=== PATIENT | female | born 1995 | race Caucasian/White ===

== ENCOUNTER → 2018-10-20 08:05 | Outpatient (CLI) | payer BC, SELFPAY ==
[2018-10-20 10:46] LABS: Vitamin D,25 Hydroxy 24.8 ng/mL (29.95-100.01)
[2018-10-20 10:47] LABS: CRP < 2.90 mg/L (0.0-3.0)
[2018-10-23 12:28] LABS: Vitamin A, Retinol 44.1 ug/dL (18.9-57.3)
== END ==
PROVIDERS: Family Provider Nurse Practitioner Primary Care; PCP Nurse Practitioner Primary Care; Referring Provider Internal Medicine Gastroenterology; Visit Provider Internal Medicine Gastroenterology
DX: K90.0 Celiac disease (principal)
CPT/HCPCS: 36415; 82306; 84590; 86140

== ENCOUNTER → 2018-12-07 13:21 | Outpatient (CLI) | payer BC, SELFPAY ==
[2018-12-07 18:33] LABS: Chlamydia Trachomatis by PCR Negative (Negative); Neisserai gonorrhoeae by PCR Negative (Negative); Probe Check PASS; Sample Adequacy Control PASS; Specimen Processing Control PASS
[2018-12-23 10:36] LABS: HPV Reflexed? NOT INDICATED
== END ==
PROVIDERS: Visit Provider Obstetrics & Gynecology
DX: Z12.4 Encounter for screening for malignant neoplasm of cervix (principal); Z11.3 Encounter for screening for infections with a predominantly sexual mode of transmission; Z32.01 Encounter for pregnancy test, result positive
CPT/HCPCS: 87491; 87591; 88175; G0145

== ENCOUNTER → 2018-12-21 09:35 | Outpatient (CLI) | payer BC, SELFPAY ==
[2018-12-21 11:01] LABS: Absolute Lymphocyte Count 1.14 X10^3/ul (0.83-4.51); Absolute Neutrophil Count 5.5 X10^3/uL (2.0-7.7); Basophil# 0.01 X10^3/uL; Basophil% 0.1 % (0-1); Color, Urine Yellow (Yellow); Eosinophil# 0.04 X10^3/uL; Eosinophils% 0.6 % (0-5); Glucose, Dipstick Normal (Normal); Hematocrit 40.4 % (37-47); Hemoglobin 13.2 g/dl (12.0-15.0); Ketone-Dipstick Negative (Negative); Leukocyte Esterase-Dipstick 25 /ul (Negative); Lymphocyte # 1.14 X10^3/ul (4.0); Lymphocyte % 16.1 % (19-41); Mean Corp Hgb Conc 32.7 g/gl (32-36); Mean Corpuscular Hgb 28.1 pg (27.0-32.0); Mean Corpuscular Volume 86.1 fL (81-99); Mean Platelet Vol. 11.2 fl (6.2-12.0); Monocyte# 0.45 X10^3/uL; Monocyte% 6.3 % (0-10); Neutrophil # 5.45 X10^3/uL (2.7-7.7); Neutrophil % 76.8 % (47-70); Nitrite-Dipstick Negative (Negative); Occult Blood-Urine Negative /ul (Negative); Platelet Count 268 K/mm3 (150-450); Protein-Dipstick 15 mg/dl (Negative); RBC Distribution Width CV 14.7 % (11.6-14.6); RBC Distribution Width SD 45.4 fl (35.1-43.9); Red Blood Count 4.69 M/mm3 (4.2-5.4); Specific Gravity, Urine 1.015 (1.002-1.030); Urine Bilirubin Dipstick Negative (Negative); Urine Clarity Sl. Cloudy (Clear); Urine Urobilinogen Normal (Normal); White Blood Count 7.1 K/mm3 (4.4-11.0)
[2018-12-21 11:02] LABS: POSITIVE COUNT NO; POSITIVE DIFFERENTIAL NO; POSITIVE MORPHOLOGY NO
[2018-12-21 11:05] LABS: COTININE Drug Screen Negative (<200 ng/mL)
[2018-12-21 11:12] LABS: Thyroid Stim Hormone (TSH) 1.26 uIU/mL (0.358-3.74)
[2018-12-21 11:13] LABS: Amphetamine Urine VISTA NEGATIVE (<1000 ng/mL); Barbiturate Urine VISTA NEGATIVE (< 200 ng/mL); Benzodiazepine Urine VISTA NEGATIVE (< 200 ng/mL); Cocaine Urine VISTA NEGATIVE (< 300 ng/mL); Ecstacy Urine VISTA NEGATIVE (< 500 ng/mL); Methadone Urine VISTA NEGATIVE (< 300 ng/mL); PCP Urine VISTA NEGATIVE (< 25 ng/mL); THC Urine VISTA NEGATIVE (< 50 ng/mL); Vista UDS pH Range 6
[2018-12-21 11:52] LABS: HIV - WCH Non-Reactive (Nonreactive); Rubella IgG 83.5 IU/mL
[2018-12-23 11:56] LABS: HEPATITIS B SURFACE AG Negative (Negative); Hep C Antibodies <0.1 s/co ratio (0.0-0.9); V-Zoster IgG (Immunity) 460 index (Immune >165)
[2018-12-24 20:18] LABS: Prenatal RPR NONREACTIVE (NONREACTIVE)
== END ==
PROVIDERS: Visit Provider Obstetrics & Gynecology
DX: Z34.81 Encounter for supervision of other normal pregnancy, first trimester (principal)
CPT/HCPCS: 36415; 80307; 81002; 84443; 85025; 86703; 86762; 86787; 86803; 87340

== ENCOUNTER → 2019-04-28 | Outpatient (CLI) | payer BC, SELFPAY ==
[2019-04-28 15:46] LABS: Hematocrit 32.7 % (37-47); Hemoglobin 10.7 g/dL (12.0-15.0); Mean Corp Hgb Conc 32.7 g/dL (32-36); Mean Corpuscular Hgb 28.5 pg (27.0-32.0); Mean Platelet Vol. 10.9 fl (6.2-12.0); Platelet Count 211 K/mm3 (150-450); RBC Distribution Width CV 13.4 % (11.6-14.6); RBC Distribution Width SD 42.2 fl (35.1-43.9); Red Blood Count 3.76 M/mm3 (4.2-5.4); White Blood Count 6.1 K/mm3 (4.4-11.0)
[2019-04-28 15:49] LABS: Glucose Challenge Gest 1H 50g 77 mg/dL (70-140)
== END | disposition home or self-care (01) ==
LOC: LABSPEC 13:40 → WOBLAB 13:42
PROVIDERS: Visit Provider Obstetrics & Gynecology
DX: Z34.83 Encounter for supervision of other normal pregnancy, third trimester (principal)
CPT/HCPCS: 36415; 82950; 85027

== ENCOUNTER → 2019-06-23 13:22 | Outpatient (CLI) | payer BC, SELFPAY | PROVIDERS: Visit Provider Obstetrics & Gynecology | DX: Z36.85 Encounter for antenatal screening for Streptococcus B (principal) | CPT/HCPCS: 87081 ==

== ENCOUNTER 2019-07-13 04:05 | Inpatient (IN) | payer BC, SELFPAY ==
[2019-07-13] MEDS: Lactated Ringers 500 ML 999 ML IV ×3 (04:35→07:09)
[2019-07-13 04:49] VITALS: BMI 20.8
[2019-07-13] MEDS: Lactated Ringers 1,000 ML 200 ML IV (05:09)
[2019-07-13 05:15] LABS: Absolute Lymphocyte Count 1.91 X10^3/uL (0.83-4.51); Basophil# 0.02 X10^3/uL; Basophil% 0.3 % (0-1); Eosinophil# 0.03 X10^3/uL; Eosinophils% 0.5 % (0-5); Hematocrit 36.2 % (37-47); Hemoglobin 11.3 g/dL (12.0-15.0); Lymphocyte # 1.91 X10^3/ul (4.0); Lymphocyte % 28.8 % (19-41); Mean Corp Hgb Conc 31.2 g/dL (32-36); Mean Corpuscular Volume 80.1 fL (81-99); Mean Platelet Vol. 11.5 fl (6.2-12.0); Monocyte# 0.61 X10^3/uL; Monocyte% 9.2 % (0-10); NRBC Flagged by Analyzer 0 % (0-5); Neutrophil # 4.03 X10^3/uL (2.7-7.7); Neutrophil % 60.7 % (47-70); Platelet Count 181 K/mm3 (150-450); RBC Distribution Width CV 14.2 % (11.6-14.6); RBC Distribution Width SD 41.1 fl (35.1-43.9); Red Blood Count 4.52 M/mm3 (4.2-5.4); White Blood Count 6.6 K/mm3 (4.4-11.0)
[2019-07-13] MEDS: fentaNYL-bupivacaine (epidural) 100 ML BAG EPIDURAL (05:41)
[2019-07-13] MEDS: Oxytocin 30 units/NS 500 ml 30 UNITS/500 ML IV.SOLN 334 UNITS IV (07:43)
--- NOTE | 2019-07-13 07:52 | PCM.HP.BLA ---
History and Physical Date of Admission: 07/13/19 [facility] ANTEPARTUM RECORD - HISTORY AND PHYSICAL (07/13/2019) Name: SUMEET MOONEY History of This : This is a 24-year-old patient 2 para 1 who presents in active labor. care has been uneventful. OB Physician: ONEIDA [place]'s Physician: GIOVANNA AVIONICS INSTALLER ...................................................................... : 1995 Age: 24 Address: [address] [place] [address] Phone: (h) [phone] Insurance Carrier: [employer] [facility] [id number] Emergency Contact: GINGER MOONEY [phone] ...................................................................... Final JUNIOR: 07/18/19 By Ultrasound: 10 weeks 1 day PARITY: (G-Total Pregnancies P-Fullterm,Premature,Induced AB,Spont AB, Ectopics, Multiple,Living) JUNIOR CONFIRMATION: By LMP: 09/30/19 Initial Exam: 07/18/19 By First Ultrasound Exam: 07/18/19 Final JUNIOR: 07/18/19 BLOOD TYPE: AFP: 1 HR PG: GBS: Original Ordering Provider: Ava Duke Comments: VAGINAL/RECTAL NANO Culture Group B Beta Streptococcus is not isolated. Rublla titer (>10 immune)-- Hepatatis B den AG-- CULTURES:-- OB PROBLEM LIST: ALLERGIC to PCN's! MSAFP and CF testing declined Recent Celiac Disease diagnosis Short interval between pregnancies ALLERGIES: Penicillins Intolerance-unknown MEDICATIONS: + DHA 28 mg iron- 975 mcg-200 mg combo pack One tablet by mouth daily SOCIAL HISTORY: Smoking - Never Alcohol Use - denies drinking Diet - Gluten-free Lifestyle - low stress lifestyle and Exercise - regular Employer - Home Job Description - Illicit Drug Use - denies use of street drugs Sexual Activity - Residence - Lives w/ and their son Place of - [place], [place] Spouse-Sig Other Name - Massimokeyona Kosta Spouse-Sig Other Occupation - Chair Mechanic @ [employer] in [place] Spouse-Sig Other Phone No - [phone] Children Name(s) - Edgar (09/2018 Lea King) PRIOR DELIVERY HISTORY DEL DATE GEST LAB WT LB WT OZ TYPE ANES LABOR TX 17 Jun 30 38 8 6 10 Vag Epidural No ANTEPARTUM FLOW CHART VISIT GE RTC FU F F HI U U DATE WK MD WKS HT PN HR M SS BP ED WT HI GL D EF ST __ ____ ___ __ __ ___ __ __ __ ___ __ __ __ ___ __ 25 Jun 38 JMW 1 37 + + 112/72 sl 136 tr - 18 Jun 37 JMW 1 35 + + 110/68 0 134 tr - Jun 36 JMW 1 34 V + + 118/74 sl 134 tr - 1 50 -2 May JMW 2 34 + 100/58 0 133 - - 07 Jun 12 JMW 3 31 + + 102/62 0 130 tr - 17 May 09 JMW 3 28 + + 90/74 0 129 - - Apr 05 DS 4 23 ? + + 90/60 0 125 - - March 01 DS 4 20 ? + + 108/60 0 124 - - February 27 DS 2 18 ? + ? 124/62 0 120 - - 08 Jan 24 DS 4 U+ US 118/66 0 116 - - Dec 20 DS 4 U+ O 108/60 0 116 - - ANTEPARTUM NOTE(S): Jul 07 2019: Good FM,Sore Throat Jun 30 2019: Vi Varma periodically,Good FM Jun 23 2019: GBS Today,LARC Form signed,Good FM Jun 09 2019: feeling well. May 19 2019: Feeling Well,Good FM Apr 28 2019: feeling well. Glucola drawn today. Mar 29 2019: feeling well. Glucola given. Mar 02 2019: see note February 15 2019: see note Jan 18 2019: see note Dec 21 2018: see note COMPREHENSIVE ANTEPARTUM NOTE(S): Jun 30 2019: Feeling well; reports active FM; denies UCs, VB, LOF; planning epidural for labor pain management; discussed warning signs, s/s Labor, when to call/come in; RTO 1 week(s) for PNV - KVW Jun 28 2019: GBS negative. EB Jun 25 2019: H taken to OB. tkg Jun 23 2019: F eeling well; reports active FM; denies UCs, VB, LOF; discussed warning signs, s/s Labor, when to call/come in; GBS done today; VE /-2; US done to confirm adequate growth; RTO 1 week(s) for PNV - KVW Jun 09 2019: Feeling well; reports active FM; denies UCs, VB, LO; discussed recommendation for TD[facility], [facility]; discussed warning signs, s/s PTL; RTO 2 week(s)for PNV Mar 29 2019: No complaints. Good movement. GCT and CBC next visit. Mar 02 2019: Anatomical US performed today with no anomalies noted. There is normal growth, placentation, and umbilical cord. Feeling movement. Mar 02 2019: Sumeet is feeling FM. Doing well. Comprehensive US done today. kbm Feb 15 2019: Sumeet reports no concerns today. Thinks she felt FM last night. Feb 15 2019: Doing well. Perhaps felt some movement yesterday. Anatomical US next visit. Jan 18 2019: Sumeet is doing well. Voicing no concerns. Declines genetics testing. kbm Jan 18 2019: Having some digestive issues. labs reviewed and are normal. She is immune to varicella. B+ blood type. Dec 21 2018: US today confirms EDC of 07/18/19. Normal heart beat noted. NOB nurse intake and labs done today. Dec 21 2018: Sumeet is here for her NOB visit at 10 w 1 d, she is a with an JUNIOR of 07/18/2019. US and PNV with Dr. Carver completed prior to NOB visit. Sumeet is accompanied today by her , Ginger, and their 6 month old son, Edgar. Ginger is helpful with Edgar and appears supportive. Edgar was born by at [facility], Sumeet states that she had SROM at 38 weeks and then had Pitocin. Past history updated. Delivery at [facility] is planned, possibly with an epidural, and she will breastfeed. Sumeet is a life long non-smoker, and she denies use of drugs or ETOH. She has been taking a OTC vitamin containing DHA, and finds that most days she tolerates this well. She will occasionally take a gummy vitamin. States daily nausea, that is beginning to improve, and she denies emesis. She states that as long as she eats often, she does well. Encouraged to continue small frequent meals with protein included throughout the day, as well as make sure she has adequate water hydration of at least one gallon every 24 hours. Genetic Screening form completed. MSAFP and CF testing declined, consent signed as such. Office practice patterns reviewed, including labs that will be collected today. Emergencies/danger signs to report, round ligament pain, reporting s/s of a UTI, and common OTC medications approved/not approved for use during reviewed. Sumeet was recently diagnosed with Celiac Disease, and she eats a gluten free diet. Dietary and water needs reinforced, including recommended weight gain, caloric needs, limiting empty calories. She does not consume caffeine. Printed guide for food safety provided with review. Discussed and encouarged recommended physical activity during . Kegel exercises reviewed. Discussed lifting restrictions during . Sumeet states that she understands all information provided during NOB visit, and has no questions following same. To [facility] draw station. AW Dec 07 2018: Sumeet is a 23 yr old new pt to the practice, here w/, Ginger and their 5 mo son, Edgar for Missed Menses. LMP 09/30/18 would make her 9 wks 5 days, JUNIOR 07/10/19. Hx [facility] 06/29/18 post SROM @ 38 wks. Reports only problem in her of 15 # wt gain. Edgar weighed 6# 10 oz at and doing well. She was just Dx'd w/Celiac Disease. Recent Endoscopy 10/20/18, reports preg test then was negative. UPT positive in the office this morning. No nausea. Hx loose stools with 1st . She was breast feeding and had several periods prior to becoming . Stopped nursing 3 wks ago w/knowledge of , still pumping once q other day, planning to stop. Taking a daily PNV. Non-smoker. No suergeries. No Hx abn paps or STD's. Had Varicella Vaccine. informational materials given and reviewed otc meds ok to take. NO NSAIDS. kbm REVIEW OF SYSTEMS: GENERAL - Denies fever, or chills SKIN - Denies rash, new skin lesions, or change in moles EYES - Denies blurred vision, or change in visual acuity EARS - Denies ear pain, or difficulty hearing NOSE - Denies nasal congestion, discharge, or bleeding MOUTH - Denies sore throat, or difficulty swallowing NECK - Denies pain or swelling RESPIRATORY - Denies shortness of breath, cough, wheezing CARDIOVASCULAR - Denies palpitations, chest pain, orthopnea, PND, peripheral edema, syncope or claudication GASTROINTESTINAL - Denies nausea, vomiting, diarrhea, constipation, Denies abdominal pain, melena and or bright red blood GENITOURINARY - Denies dysuria, frequency of urination, urgency, or hesitancy MUSCULOSKELETAL - Denies joint or muscle pain, or back pain NEUROLOGICAL - Denies localized numbness, weakness, or tingling PSYCHIATRIC - Denies depression, anxiety, substance abuse or suicide attempts ENDOCRINE - Denies heat or cold intolerance, weight loss or gain, increasing thirst HEMATO-IMMUNOLOGIC - Denies easy bruising, bleeding, oral ulcerations or recurrent infections GENETICS SCREENING: Age 35+ years: No Thalassemia: No Neural Tube Defect: No Down Syndrome: No VICENTA-SACHS: No Sickle Cell Disease: No Hemophilia: No Musc. Dystrophy: No Cystic Fibrosis: No-declines screening Loop Chorea: No Mental Retardation: No Fragile X: No Other genetic: No Other defects: No SABs/still births: No Drugs since LMP: No INFECTION HISTORY: High risk AIDS: No High risk Hepatitis: No Exposed to TB: No Exposed to Herpes: No Rash/viral illness since LMP: No History of STD: No MENSTRUAL HISTORY: *Menses Regularity: RegularMenarche (Age Onset): 16* PAST SUMMARY: PARITY: 1. Total Pregnancies............ 2 2. Full Term Pregnancies........ 1 3. Premature.................... 0 4. Abortions - Induced.......... 0 5. Abortions - Spontaneous...... 0 6. Ectopics..................... 0 7. Multiple Births.............. 0 8. Living Children.............. 1 PAST #1: Date of :.................. 06/29/18 Gestation Weeks:................ 38 Length of labor(hours):......... 8 Sex:............................ M Weight-lbs:............... 6 Weight-oz:................ 10 Type of Delivery:............... Vag Type of Anesthesia:............. Epidural Place of Delivery:.............. [facility] Treatment of Labor?:.... No Comment: SROM, PIT PHYSICAL EXAMINATION General Appearence: 24 yo female in no acute distress Vital Signs: AF, VSS Heart: RRR without rubs or gallops Lungs: CTA x 2 Breasts: deferred Abdomen: gravid Pelvis: Cervix: 7 8 cm 95% effaced bag of water intact Presentation: cephalic Station: 0 Fetus: Size: AGA Movement: present Heart: present Labs for : SUMEET MOONEY since 10/21/2018 ORDER DATEIN DESCRIPTION VALUE UNITS RANGE A+ COMMENT TYPE AND SCREEN 07/13/19 Reason for Type AND Screen/Red Cells: Labor [facility]~[address] [place], [address]~ BLOOD TYPE GEL B POSITIVE N ANTIBODY SCREEN NEGATIVE N CBC W/DIFF, AUTOMATED 07/13/19 NOTE Original Ordering Provider: Ava Duke WBC 6.6 K/mm3 4.4-11.0 RBC 4.52 M/mm3 4.2-5.4 HGB 11.3 g/dL 12.0-15.0 L HCT 36.2 % 37-47 L MCV 80.1 fL 81-99 L MCH 25.0 pg 27.0-32.0 L MCHC 31.2 g/dL 32-36 L RDW CV 14.2 % 11.6-14.6 RDW SD 41.1 fl 35.1-43.9 PLT 181 K/mm3 150-450 MPV 11.5 fl 6.2-12.0 NEUT% 60.7 % 47-70 LY% 28.8 % 19-41 MONO% 9.2 % 0-10 EO% 0.5 % 0-5 BASO% 0.3 % 0-1 IM GRAN % 0.500 % 0.0-0.9 IG% - Immature Granulocytes (promyelocytes, myelocytes and metamyelocytes) > 1% indicates that a LEFT SHIFT is Present. ABSOLUTE NEUT 4.0 X10 3/uL 2.0-7.7 ABSOLUTE LYMPH 1.91 X10 3/uL 0.83-4.51 NRBC, FLAGGED 0 % 0-5 CULTURE, GROUP B STREPTOCOCCUS 06/23/19 NOTE Original Ordering Provider: Ava Duke Comments: VAGINAL/RECTAL NANO Culture Group B Beta Streptococcus is not isolated. Reviewed by LEENA GLUCOSE CHALLENGE GEST 1H 50G 04/28/19 NOTE Original Ordering Provider: Ava Dkue GLU GEST 50G 1H 77 mg/dL 70-140 Reviewed by AVA CBC-COMPLETE BLOOD CNT NO DIFF 04/28/19 NOTE Original Ordering Provider: Ava Duke WBC 6.1 K/mm3 4.4-11.0 RBC 3.76 M/mm3 4.2-5.4 L HGB 10.7 g/dL 12.0-15.0 L HCT 32.7 % 37-47 L MCV 87.0 fL 81-99 MCH 28.5 pg 27.0-32.0 MCHC 32.7 g/dL 32-36 RDW CV 13.4 % 11.6-14.6 RDW SD 42.2 fl 35.1-43.9 PLT 211 K/mm3 150-450 MPV 10.9 fl 6.2-12.0 Reviewed by AVA RPR 12/21/18 NOTE Original Ordering Provider: Ronnie Carver RPR NONREACTIVE NONREACTIVE Reviewed by RONNIE V-ZOSTER IGG (IMMUNITY) 12/21/18 NOTE Original Ordering Provider: Ronnie Carver VZOST IGG [id number] index Immune >165 Negative <135 Equivocal 135 - 165 Positive >165 A positive result generally indicates exposure to the pathogen or administration of specific immunoglobulins, but it is not indication of active infection or stage of disease. Reviewed by RONNIE HEPATITIS C ANTIBODIES 12/21/18 NOTE Original Ordering Provider: Ronnie Carver HEP C AB <0.1 s/co ratio 0.0-0.9 Negative: < 0.8 Indeterminate: 0.8 - 0.9 Positive: > 0.9 The CDC recommends that a positive HCV antibody result be followed up with a HCV Nucleic Acid Amplification test (983955). Reviewed by RONNIE HEPATITIS B SURFACE AG 12/21/18 NOTE Original Ordering Provider: Ronnie Carver HB SURF AG Negative Negative Performed at: [address] [id number] Relief Salesperson: Armaan Link PhD, Phone: [phone] Reviewed by RONNIE T AND S-NO CHARGE W/PNP 12/21/18 Reason for Type AND Screen/Red Cells: Surgery? N [facility]~[address] [place], [address]~ BLOOD TYPE GEL B POSITIVE N AB SCREEN GEL NEGATIVE N Reviewed by RONNIE HIV - [facility] 12/21/18 NOTE Original Ordering Provider: Ronnie Carver HIV - [facility] Non-Reactive Nonreactive Reviewed by RONNIE RUBELLA IGG 12/21/18 NOTE Original Ordering Provider: Ronnie Carver RUBELLA IGG 83.5 IU/mL Antibody results Interpretation of Immune Status < 5 IU/ml Presumed Non-immune 5 - < 10 IU/ml Equivocal > or = 10 IU/ml Presumed Immune Reviewed by RONNIE NICOTINE URINE DRUG SCREEN 12/21/18 NOTE Original Ordering Provider: Ronnie Carver TO BE CONFIRMED CONFIRMATORY TESTING FOR ALL POSITIVE URINE DRUG SCREEN RESULTS WILL ONLY BE SENT OUT UPON PHYSICIAN ORDER. The results of Urine Drug Screen methods provide only preliminary analytical test results. A more specific alternate chemical method must be used in order to obtain a confirmed analytical result. Gas chromatography/mass spectrometery (GC/MS) is the preferred confirmatory method. Clinical consideration and professional judgement should be applied to any drug of abuse test result, particularly when preliminary positive results are used. COT DRG SCREEN Negative <200 ng/mL Cotinine is the first-stage metabolite of Nicotine. Reviewed by RONNIE URINE DRUG SCREEN (VISTA) 12/21/18 NOTE Original Ordering Provider: Ronnie Carver TO BE CONFIRMED CONFIRMATORY TESTING FOR ALL POSITIVE URINE DRUG SCREEN RESULTS WILL ONLY BE SENT OUT UPON PHYSICIAN ORDER. VISTA Urine Drug Screen methods provide only preliminary analytical test results. A more specific alternate chemical method must be used in order to obtain a confirmed analytical result. Gas chromatography/mass spectrometery (GC/MS) is the preferred confirmatory method. Clinical consideration and professional judgement should be applied to any drug of abuse test result, particularly when preliminary positive results are used. URINE TCA TESTING MUST BE ORDERED SEPARATELY. USE TEST MNEMONIC: [facility] VISTA UDS PH 6 AMPHETAMINES NEGATIVE <1000 ng/mL BARBITIURATES NEGATIVE < 200 ng/mL BENZODIAZIPINE NEGATIVE < 200 ng/mL COCAINE NEGATIVE < 300 ng/mL ECSTACY NEGATIVE < 500 ng/mL METHADONE NEGATIVE < 300 ng/mL OPIATES NEGATIVE < 300 ng/mL PCP NEGATIVE < 25 ng/mL THC NEGATIVE < 50 ng/mL Reviewed by RONNIE THYROID STIM HORMONE (TSH) 12/21/18 NOTE Original Ordering Provider: Ronnie Carver TSH 1.26 uIU/mL 0.358-3.74 Reviewed by RONNIE URINALYSIS, ROUTINE (DIPSTICK) 12/21/18 NOTE Original Ordering Provider: Ronnie Carver COLOR Yellow Yellow CLARITY Sl. Cloudy Clear GLUCOSE, UR Normal mg/dl Normal BILIRUBIN URINE Negative mg/dL Negative KETONE UR Negative mg/dl Negative SP.GR. DIPSTX 1.015 1.002-1.030 PH UR 7.0 5.0 - 8.0 PROT DIPSTX 15 mg/dl Negative H UROBILI Normal mg/dl Normal NITRITE UR Negative Negative OCCULT BLOOD-UR Negative /ul Negative LEUK ESTERASE 25 /ul Negative H Reviewed by RONNIE CBC W/DIFF, AUTOMATED 12/21/18 NOTE Original Ordering Provider: Ronnie Carver WBC 7.1 K/mm3 4.4-11.0 RBC 4.69 M/mm3 4.2-5.4 HGB 13.2 g/dl 12.0-15.0 HCT 40.4 % 37-47 MCV 86.1 fL 81-99 MCH 28.1 pg 27.0-32.0 MCHC 32.7 g/gl 32-36 RDW CV 14.7 % 11.6-14.6 H RDW SD 45.4 fl 35.1-43.9 H PLT 268 K/mm3 150-450 MPV 11.2 fl 6.2-12.0 NEUT% 76.8 % 47-70 H LY% 16.1 % 19-41 L MONO% 6.3 % 0-10 EO% 0.6 % 0-5 BASO% 0.1 % 0-1 IM GRAN % 0.100 % 0.0-0.9 IG% - Immature Granulocytes (promyelocytes, myelocytes and metamyelocytes) > 1% indicates that a LEFT SHIFT is Present. ABSOLUTE NEUT 5.5 X10 3/uL 2.0-7.7 ABSOLUTE LYMPH 1.14 X10 3/ul 0.83-4.51 Reviewed by RONNIE Reviewed by RONNIE Reviewed by RONNIE PAP I-G W/RFX HRHPV 12/07/18 NOTE Original Ordering Provider: Ronnie Carver DIAGN . NEGATIVE FOR INTRAEPITHELIAL LESION OR MALIGNANCY. ADEQ . Satisfactory for evaluation. Endocervical and/or squamous metaplastic cells (endocervical component) are present. PERFORM . Ariadna Bragg Circular Knitter (ASCP) TEST METHOD . This liquid based ThinPrep(R) pap test was screened with the use of an image guided system. COMM . . PAPSMR . The Pap smear is a screening test designed to aid in the detection of premalignant and malignant conditions of the uterine cervix. It is not a diagnostic procedure and should not be used as the sole means of detecting cervical cancer. Both false-positive and false-negative reports do occur. HPV RFLX . The HPV DNA reflex criteria were not met with this specimen result therefore, no HPV testing was performed. Performed at: [address] [id number] Relief Salesperson: Tere Cochran MD, Phone: [phone] Reviewed by RONNIE Reviewed by RONNIE CT/NG [facility] BY PCR 12/07/18 NOTE Original Ordering Provider: Ronnie Carver CHLAM TRA PCR Negative Negative NG BY PCR Negative Negative Reviewed by RONNIE Impression /Plan: Term intrauterine in labor. Preparations in progress for delivery.
--- NOTE | 2019-07-13 07:56 | PCM.OPRPT ---
Vaginal Delivery Maternal Presentation: Active Labor Amniotic Membrane Rupture Type: Artificial Amniotic Fluid Description: Clear Final JUNIOR: 07/18/19 Gestational age: 39 Weeks and 2 Days Date of Procedure: 07/13/19 Pre-Operative Diagnosis: IUP Post-Operative Diagnosis: IUP Surgery/ Procedure Performed: Spontaneous Vaginal Delivery Type of Anesthesia: Epidural Description of Procedure: Spontaneous vaginal delivery of a viable male infant with Apgars of 9/9 from an occiput anterior presentation with clear amniotic fluid and normal three-vessel placenta. Cord wrapped around feet loose. No episiotomy. First-degree midline laceration repaired with 3-0 repeat suture under epidural. Sponges okay. Delivery physician: Thien Duke MD. Presentation: Vertex Placental Delivery Description: Spontaneous Placenta Disposition: [facility] Cord Vessel Description: 3 Vessels Cord Entanglement: - - Around feet loose Estimated Blood Loss: 250 cc A gender: Male (1 minute): 9 (5 minute): 9 Episiotomy Description: None Laceration: Midline, 1st degree Medications given after delivery: IV Pitocin
--- NOTE | 2019-07-13 08:00 | DCINST_ITS ---
Discharge Diet: No Restrictions Discharge Activity: May Shower, May Take a Tub Bath May resume sexual activity in: 4-6 weeks Additional Activity Instructions:: Nothing in the vagina for 4-6 weeks. You may return to work/school in 6 weeks. Call your doctor if you observe: Fever of 101 or Higher, Inability to urinate, Inability to have a bowel movement, Using more than one pad per hour Additional Instructions: If you experience any of the following, contact your healthcare provider. * Bleeding that soaks a pad every hour for 2 hours * Unrelieved incision or abdominal pain * Swelling, redness, discharge or bleeding from your incision or episiotomy site * Your incision begins to separate * Problems urinating (including inability to urinate or burning while urinating). * Visual changes * Severe headache * Flu-like symptoms * Pain or redness in one of both of your breasts * Pain, warmth, tenderness or swelling in your legs, especially the calf area * Frequent nausea and vomiting * Symptoms of depression or anxiety If you experience any of the following, call 911 or go to the nearest Emergency Room. * Chest pain * Problems breathing * Seizure activity * Partial or complete paralysis of a body part, slurred speech, weakness or drooping of the face, or a sudden inability to walk or hold your balance Allergies/Adverse Reactions: Allergies Penicillins [PCN] Allergy (Verified 07/13/19 04:51) Unknown pt states she had a reaction in childhood, doesnt remember reaction Medications to take at Discharge Vits [Prenatabs FA] 1 tab PO DAILY 07/13/19 Please Follow Up With: Thien Duke MD - [phone] When: Call to make an appointment with your doctor in 6 weeks. Primary Care Physician: Kathy Lund NP-C [Primary Care Provider] - Test Results: Test results from this visit will be discussed in further detail at your follow- up appointment, if applicable.
[2019-07-13] MEDS: Ibuprofen 600 MG Tablet PO ×2 (11:18→17:45)
[2019-07-13 11:40] VITALS: BP 106/52; PULSE 71; RESP 16; TEMP 37.5; O2SAT 98
[2019-07-13 17:20] VITALS: BP 118/68; PULSE 76; RESP 18; TEMP 37.3
[2019-07-13 19:44] VITALS: BP 107/69; PULSE 88; RESP 18; TEMP 36.7
[2019-07-14 00:45] VITALS: BP 107/68; PULSE 76; RESP 16; TEMP 36.6
[2019-07-14] MEDS: Ibuprofen 600 MG Tablet PO ×2 (00:55→08:10)
[2019-07-14 04:50] VITALS: BP 114/67; PULSE 74; RESP 18; TEMP 36.6
[2019-07-14 08:00] VITALS: BP 108/68; PULSE 80; RESP 15; TEMP 36.9
--- NOTE | 2019-07-14 08:05 | PCM.PN.OB ---
Subjective: Resting comfortably, tolerating diet, passing flatus, denies pain; infant well Objective: AVSS Breasts soft, nipples reddened, irritated Fundus firm, midline, u/2, lochia scant Perineum with mild edema, repair well approximated, without erythema, or drainage - Physical Exam General: Alert, Oriented x3, Cooperative, No apparent distress HEENT: PERRLA, EOMI Oral: Moist Mucosa Neck: Supple Lungs: Clear to auscultation, Normal air movement Cardiovascular: Regular rate, Regular Rhythm Abdomen: Bowel Sounds Present, Soft, Non Tender, Non-Distended, Passing Flatus Extremities: No edema, No Calf Tenderness Musculoskeletal: No Tenderness to Palpation of Joints or Extremities Neurological: Cranial nerves II-XII grossly intact, Deep Tendon Reflexes 2+/4 and Symmetrical Psych/Mental Status: Normal Affect, Appropriate, Alert and oriented to time, place, person, mood and affect Vital Signs Temp Pulse Resp BP Pulse Ox 97.8 F 74 18 114/67 98 07/14/19 04:50 07/14/19 04:50 07/14/19 04:50 07/14/19 04:50 07/13/19 11:40 Oxygen Delivery Method Room Air Weight: 136 lb 14.513 oz Body Mass Index (BMI) 20.8 Intake and Output for Last 24 Hours 07/12/19 07/13/19 07/14/19 23:59 23:59 23:59 Intake Total 2282.85 / 2282.85 Output Total 1700 / 1700 Balance 582.85 / 582.85 Medical Necessity - Tobacco Use Smoking Status: Never smoker Assessment/Plan Assessment: PP Day #1, normal involution, normal course Nipple irritation r/t Plan: Lansinoh, colostrum to nipples Discharge teaching completed Discharge home at 24 hours if patient and infant stable RTO 6 weeks for PP exam
[2019-07-14 09:36] VITALS: BP 108/74; PULSE 72; RESP 14; TEMP 36.5
[2019-07-14] MEDS: Acetaminophen 500 MG Tablet 1000 MG PO (13:38)
== END 2019-07-14 13:45 | disposition home or self-care (01) | DRG 807 ==
PROVIDERS: Admitting Provider Obstetrics & Gynecology; Family Provider Nurse Practitioner Primary Care; PCP Nurse Practitioner Primary Care; Referring Provider Obstetrics & Gynecology; Visit Provider Obstetrics & Gynecology
DX: O69.82X0 Labor and delivery complicated by other cord entanglement, without compression, not applicable or unspecified (principal); Z37.0 Single live birth; O26.893 Other specified pregnancy related conditions, third trimester; O99.62 Diseases of the digestive system complicating childbirth; K90.0 Celiac disease; O70.0 First degree perineal laceration during delivery; Z3A.39 39 weeks gestation of pregnancy
CPT/HCPCS: 59025; 59050; 85025; 86850; 86900; 86901; 99218; J7120; G0378

== ENCOUNTER → 2020-06-07 12:05 | Outpatient (CLI) | payer OTHER, SELFPAY ==
[2020-06-07 15:52] LABS: Absolute Lymphocyte Count 1.66 X10^3/uL (0.83-4.51); Absolute Neutrophil Count 2.3 X10^3/uL (2.0-7.7); Basophil# 0.04 X10^3/uL; Basophil% 0.9 % (0-1); Eosinophil# 0.08 X10^3/uL; Eosinophils% 1.8 % (0-5); Hemoglobin 13.7 g/dL (12.0-15.0); Lymphocyte # 1.66 X10^3/ul (4.0); Lymphocyte % 38.3 % (19-41); Mean Corp Hgb Conc 32.6 g/dL (32-36); Mean Corpuscular Hgb 29.5 pg (27.0-32.0); Mean Corpuscular Volume 90.3 fL (81-99); Mean Platelet Vol. 11.4 fl (6.2-12.0); Monocyte# 0.25 X10^3/uL; Monocyte% 5.8 % (0-10); NRBC Flagged by Analyzer 0 % (0-5); Neutrophil % 53.2 % (47-70); Platelet Count 231 K/mm3 (150-450); RBC Distribution Width CV 13.1 % (11.6-14.6); RBC Distribution Width SD 42.6 fl (35.1-43.9); Red Blood Count 4.65 M/mm3 (4.2-5.4); White Blood Count 4.3 K/mm3 (4.4-11.0)
[2020-06-07 16:03] LABS: ALB/GLOB Ratio 1.1 RATIO (0.9-2.4); AST(SGOT) 13 U/L (15-37); Alanine Aminotransfer ALT/SGPT 23 U/L (13-56); Albumin, Serum 4.1 g/dL (3.2-5.0); Alkaline Phosphatase 62 U/L (45-117); Anion Gap 4 (5-15); BUN 12 mg/dL (7-18); BUN/Creat Ratio 16.4 RATIO (10-20); Calcium,Total 9.1 mg/dL (8.5-10.1); Chloride 108 mmol/L (98-107); Creatinine, Serum 0.73 mg/dL (0.55-1.02); EST Glomerular Filtration Rate 103 mL/min (>60); Est Glom Filt Rate - Afr Amer 125 mL/min (>60); Globulin 3.8 g/dL (2.2-4.2); Glucose 77 mg/dL (74-106); Potassium 3.8 mmol/L (3.5-5.1); Protein, Total 7.9 g/dL (6.4-8.2); Sodium Level 140 mmol/L (136-145)
[2020-06-09 16:08] LABS: Endomysial Antibody IgA Negative (Negative)
[2020-06-10 13:18] LABS: Immunoglobulin A 117 mg/dL (87-352); t-Transglutaminase IgA 3 U/mL (0-3)
== END ==
PROVIDERS: PCP Nurse Practitioner Primary Care; Referring Provider Internal Medicine Gastroenterology; Visit Provider Internal Medicine Gastroenterology
DX: R10.84 Generalized abdominal pain (principal)
CPT/HCPCS: 36415; 80053; 82306; 82784; 83516; 85025; 86255

== ENCOUNTER 2021-03-29 07:30 | Inpatient (IN) | payer OTHER, SELFPAY ==
[2021-03-29] VITALS (35 sets, daily range): BP systolic 94–120; BP diastolic 50–76; PULSE 55–92; RESP 16–18; TEMP 36.4–37.2; O2SAT 99–100; BMI 21.4
[2021-03-29] MEDS: Lactated Ringers 1,000 ML 200 ML IV (07:53)
--- NOTE | 2021-03-29 07:57 | PCM.HP.BLA ---
History and Physical Date of Admission: 03/29/21 [facility] [place] - H[place]ORY AND PHYSICAL (03/29/2021) Name: SU MOONEY History of this : This is a 25 year old [id number] presents at 39 wks + 3 days gestation who presents in active labor. OB Physician: DEREK CARABALLO MD 's Physician: Kevon ...................................................................... : 1995 Age: 25 Address: [address] [place] [address] Phone: H) [phone] Insurance Carrier: [employer] [id number] Emergency Contact: OSMIN MOONEY [phone] ...................................................................... Final JUNIOR: 04/02/21 By Ultrasound: 8 weeks 3 days PARITY: (G-Total Pregnancies P-Fullterm,Premature,Induced AB,Spont AB, Ectopics, Multiple,Living) JUNIOR CONFIRMATION: By LMP: 06/26/20 Initial Exam: 04/02/21 By First Ultrasound Exam: 04/03/21 Final JUNIOR: 04/02/21 OB PROBLEM LIST: AFP and carrier screening declined ALLERGIC to PCN's! Celiac Disease EPDS on 08/24/2020 = 2. Epidural and breast feeding planned ALLERGIES: Penicillins Intolerance-unknown SOCIAL HISTORY: Smoking - Never Alcohol Use - denies drinking Diet - Gluten-free Lifestyle - low stress lifestyle and Exercise - regular Employer - Home Job Description - Illicit Drug Use - denies use of street drugs Sexual Activity - Residence - Lives with Place of - [place], [place] Spouse-Sig Other Name - Osmin Mooney Spouse-Sig Other Occupation - [employer] Spouse-Sig Other Phone No - [phone] Children Name(s) - Edgar (09/2018 Cornish Gen), Kojo(19) PRIOR DELIVERY HISTORY DEL DATE GEST LAB WT LB WT OZ TYPE ANES LABOR TX Jul 31 39 5 6 14 Vag Epidural No 17 Jun 30 38 8 6 10 Vag Epidural No ANTEPARTUM FLOW CHART VISIT GE RTC FU F F LA U U DATE WK MD WKS HT PN HR M SS BP ED WT LA GL D EF ST __ ____ ___ __ __ ___ __ __ __ ___ __ __ __ ___ __ 14 Saurav 39 JMW 1 36 V + + 114/72 0 140 tr - 4+ 80 -1 07 Saurav 38 JM 1 38 V + + 100/78 0 138 tr ne 01 Saurav 37 JM 1 37 V + + 114/70 0 13 tr ne 05 March 36 JM 1 36 V + + 110/62 0 134 tr - 19 February 34 JM 2 34 V + + 110/58 0 134 tr ne Jan 32 JM 2 2 V + + 100/64 0 128 tr - 12 Feb 09 JM 2 30 - + + 116/70 0 132 tr ne 29 Jan 07 JM 2 28 - + + 94/80 0 128 tr - 15 Jan 05 JM 2 26 - + + 100/58 0 127 tr - 16 Nov 22 CM 4 22 U+ + 122/60 0 123 - - 05 Oct 28 JM 4 16 - + O 99/70 0 117 tr - 10 Sep 23 JM 4 12 - + O 100/66 0 116 tr - ANTEPARTUM NOTE(S): Mar 26 2021: pelvic pressure, back pain Mar 19 2021: Mar 13 2021: Mar 05 2021: see note Feb 19 2021: Feb 05 2021: see note Jan 22 2021: Jan 08 2021: see note Dec 25 2020: doing well, glucola today Nov 28 2020: Oct 17 2020: see note Sep 21 2020: fatigue, sl nausea COMPREHENSIVE ANTEPARTUM NOTE(S): Mar 26 2021: Su is here for a PNV at 39 weeks. Good FM. No edema present at this time. No ctx's recently. Reports mild pelvic pressure and back pain. Would like a cervix check today. Mar 19 2021: Su is here for PNV. Voices no concerns today. Having no ctx. No LOF or vaginal discharge States she is ready at home for delivery. Having good FM. Declines cervix check. Urine tr/neg. LSS Mar 19 2021: 38wk, no complaints. Mar 13 2021: Su is here for PNV. Bugs bites are resolving. Trying to stay inside to avoid further issue. Does not feel that she is having any ctx. Having good FM. No edema noted. Declines cervix check. Urine tr/neg. LSS Mar 13 2021: 37wk, GBS neg. Bug bites resolving, cleared by PCP. Mar 13 2021: H taken to OB. tkg Mar 05 2021: Su is here for visit. She is doing well overall but does have a bug bite she is concerned about. She has a line to area of redness on L calf approx 3 cm by 4 cm. She has not tried anything. Discussed topical steriod/antihistamine, PCP? Appears like a possible spider bite? Reviewed FM, SROM, labor. GBS today. LARC declined but may be intereted in Nexplanon later. LMT Mar 05 2021: 36wk, GBS collected today. Declined cervical check. Pt with bug bites on b/l lower legs, all apear to be normal bug bites that she goes from [place] at home. But left calf with bite and ring like structure possibly worm. To follow up with PCP and can I discuss tx plan with PCP. Feb 19 2021: Su is here for PNV. Feeling much better since having the flu. Weight back up and eating/taking fluids well. No edema present today. Has not noticed any BH ctx. Urine tr/neg. LSS Feb 19 2021: 34wk, interested in control. Considering LARC, says OCP she would not remember to take. Needs GBS next visit. Feb 05 2021: Reviewed FM, PTL. Encouraged Tdap and will do that today. LMT Feb 05 2021: 32wk, had stomach flu. PO hydrating and eating small meals now. Discussed immodium. Jan 22 2021: Su is here for PNV. States she feels well over all. Tires some. Taking care of 2 toddlers at home. Having good FM. No edema noted today. No compliants. Urine neg/neg. LSS Jan 22 2021: 30wk, 1hr GTT wnl. Jan 08 2021: Su is being seen for PNV. Pt is 28 weeks today. She complains of cramping randomly at waist line. Long dips shows trs leuks, trs protein, 7.0 pH, specific gravity 1005 and all others are negative. AM Jan 08 2021: 28wk, 1hr GTT wnl. Pt with some cramping on one side that comes and goes. Pt working outside, likely physiologic. Dec 25 2020: Su is here for visit. Glucola drawn today. She is feeling really well and enjoying feeling less tired and no nausea. LMT Dec 25 2020: 26wk, 1hr GTT today. Nov 28 2020: Su reports feeling well. Good FM. Comprehensive US today no anomalies, AGA. Voicing no concerns. Glucola bottle and instructions given to be done next visit. kb Nov 28 2020: 22/1w visit. anatomy US wnl. Glucola bottle given. F/u 4w. CM Oct 17 2020: Su is here for visit. She relates that overall she is feeling well overall. Nausea improved and rare at this point. She does report increased frequency in headaches. She feels Tylenol helps. Advised may add caffeine and antihistamine if needed. Call if worsening. Declines Influenza, carrier screening, and NIPT. LMT Oct 17 2020: 16wk, Headaches. Discussed tylenol. Going to chiropractor, discussed safety of chiropractors. Anatomy u/s at next visit. Sep 21 2020: Su reports that she is doing well. Feeling pretty fatigued and slight nausea persists. Feels all pretty normal as she has 2 boys at home to take care of. T Sep 21 2020: 12wk, u/s at last visit with final JUNIOR. PNP wnl. For anatomy u/s around 20 weeks. Sep 06 2020: TELEHEALTH NOB VISIT, 20 MINUTE DURATION. Su is a 25 year old with an JUNIOR of 04/02/2021, current GA is 10 w 2 d. She resides with her Osmin, and their two young sons. Past history updated. Delivery at [facility] is planned with a likely epidural, and she will breast feed. Su is an established patient with this practice, and she states that she is very familiar wit Aug 24 2020: Su is here for missed menses appt. She relates LMP of 914 with +UPT today in office, EDC 04/02/21. This would make her 8 weeks 3 days. She does report menses has been irregular but she was . She has mild nausea and fatigue. She is not taking her very often as she feels this makes her feel worse. She could try 2 Chewable [place] complete. She reports her brother wa REVIEW OF SYSTEMS: GENERAL - Denies fever, or chills SKIN - Denies rash, new skin lesions, or change in moles EYES - Denies blurred vision, or change in visual acuity EARS - Denies ear pain, or difficulty hearing NOSE - Denies nasal congestion, discharge, or bleeding MOUTH - Denies sore throat, or difficulty swallowing NECK - Denies pain or swelling RESPIRATORY - Denies shortness of breath, cough, wheezing CARDIOVASCULAR - Denies palpitations, chest pain, orthopnea, PND, peripheral edema, syncope or claudication GASTROINTESTINAL - Denies nausea, vomiting, diarrhea, constipation, Denies abdominal pain, melena and or bright red blood GENITOURINARY - Denies dysuria, frequency of urination, urgency, or hesitancy MUSCULOSKELETAL - Denies joint or muscle pain, or back pain NEUROLOGICAL - Denies localized numbness, weakness, or tingling PSYCHIATRIC - Denies depression, anxiety, substance abuse or suicide attempts ENDOCRINE - Denies heat or cold intolerance, weight loss or gain, increasing thirst HEMATO-IMMUNOLOGIC - Denies easy bruising, bleeding, oral ulcerations or recurrent infections GENETICS SCREENING: Age 35+ years: No Thalassemia: No Neural Tube Defect: No Down Syndrome: No VICENTA-SACHS: No Sickle Cell Disease: No Hemophilia: No Musc. Dystrophy: No Cystic Fibrosis: No-declines screening [place] Chorea: No Mental Retardation: No Fragile X: No Other genetic: No Other defects: No SABs/still births: No Drugs since LMP: No INFECTION HISTORY: High risk AIDS: No High risk Hepatitis: No Exposed to TB: No Exposed to Herpes: No Rash/viral illness since LMP: No History of STD: No MENSTRUAL HISTORY: *Menses Amount/Duration: 5 daysMenses Regularity: IrregularMenarche (Age Onset): 16* PAST SUMMARY: PARITY: 1. Total Pregnancies............ 3 2. Full Term Pregnancies........ 2 3. Premature.................... 0 4. Abortions - Induced.......... 0 5. Abortions - Spontaneous...... 0 6. Ectopics..................... 0 7. Multiple Births.............. 0 8. Living Children.............. 2 PAST #1: Date of :.................. 06/29/18 Gestation Weeks:................ 38 Length of labor(hours):......... 8 Sex:............................ M Weight-lbs:............... 6 Weight-oz:................ 10 Type of Delivery:............... Vag Type of Anesthesia:............. Epidural Place of Delivery:.............. [facility] Treatment of Labor?:.... No Comment: AILYN, PIT PAST #2: Date of :.................. 07/13/19 Gestation Weeks:................ 39 Length of labor(hours):......... 5 Sex:............................ M Weight-lbs:............... 6 Weight-oz:................ 14 Type of Delivery:............... Vag Type of Anesthesia:............. Epidural Place of Delivery:.............. [place] Treatment of Labor?:.... No Comment: PHYSICAL EXAMINATION General Appearence: 25 yo female in no acute distress Vital Signs: AF, VSS Heart: RRR without rubs or gallops Lungs: CTA x 2 Breasts: deferred Abdomen: gravid Pelvis: Cervix: 6/80 intact Presentation: cephalic Station: -2 Fetus: Size: AGA Movement: present Heart: present LAB TEST(S) ORDERED SINCE:07/06/20 08/29/2020 URINE CULTURE, ROUTINE 08/29/2020 CHLAMYDIA/GC AMPLIFICATION 08/29/2020 CBC/D/PLT+RPR+UA+RH+ABO+RUB... 03/09/2021 STREP GP B CULTURE 12/26/2020 24-35 Week Labs == ==== Order Observation Description Value Ref_Range A* Site == ==== STREP GP B CULT STREP GP B CULTURE Negative Negative LC_CB Centers for Disease Control and Prevention (CDC) and [place] [employer] of Obstetricians and Gynecologists (ACOG) guidelines for prevention of group B streptococcal (GBS) disease specify co-collection of a vaginal and rectal swab specimen to maximize sensitivity of GBS detection. Per the CDC and ACOG, swabbing both the lower vagina and rectum substantially increases the yield of detection compared with sampling the vagina alone. . Penicillin G, ampicillin, or cefazolin are indicated for intrapartum prophylaxis of GBS colonization. Reflex susceptibility testing should be performed prior to use of clindamycin only on GBS isolates from penicillin-allergic women who are considered a high risk for anaphylaxis. Treatment with vancomycin without additional testing is warranted if resistance to clindamycin is noted. 24-35 Week Labs HCT/HGB scanned PHELPS CBC/D/PLT+RPR+U TSH 2.790 uIU/mL 0.450-4.500 LC_CB CBC/D/PLT+RPR+U HBSAG SCREEN Negative Negative LC_CB CBC/D/PLT+RPR+U RPR Non Reactive Non Reactive LC_CB CBC/D/PLT+RPR+U RUBELLA ANTIBODIES, IGG 3.79 index Immune >0.99 LC_CB Non-immune <0.90 Equivocal 0.90 - 0.99 Immune >0.99 CBC/D/PLT+RPR+U ABO GROUPING B LC_CB CBC/D/PLT+RPR+U RH FACTOR Positive LC_CB Please note: Prior records for this patient's ABO / Rh type are not available for additional verification. CBC/D/PLT+RPR+U ANTIBODY SCREEN Negative Negative LC_CB CBC/D/PLT+RPR+U HIV SCREEN 4TH GENERATIO Non Reactive Non Reactive LC_CB CBC/D/PLT+RPR+U WBC 4.0 x10E3/uL 3.4-10.8 LC_CB CBC/D/PLT+RPR+U RBC 4.51 x10E6/uL 3.77-5.28 LC_CB CBC/D/PLT+RPR+U HEMOGLOBIN 13.6 g/dL 11.1-15.9 LC_CB CBC/D/PLT+RPR+U HEMATOCRIT 39.5 % 34.0-46.6 LC_CB CBC/D/PLT+RPR+U MCV 88 fL 79-97 LC_CB CBC/D/PLT+RPR+U MCH 30.2 pg 26.6-33.0 LC_CB CBC/D/PLT+RPR+U MCHC 34.4 g/dL 31.5-35.7 LC_CB CBC/D/PLT+RPR+U RDW 13.7 % 11.7-15.4 LC_CB CBC/D/PLT+RPR+U PLATELETS 203 x10E3/uL 150-450 LC_CB CBC/D/PLT+RPR+U NEUTROPHILS 54 % Not Estab. LC_CB CBC/D/PLT+RPR+U LYMPHS 38 % Not Estab. LC_CB CBC/D/PLT+RPR+U MONOCYTES 6 % Not Estab. LC_CB CBC/D/PLT+RPR+U EOS 1 % Not Estab. LC_CB CBC/D/PLT+RPR+U BASOS 0 % Not Estab. LC_CB CBC/D/PLT+RPR+U IMMATURE CELLS LC_CB CBC/D/PLT+RPR+U NEUTROPHILS (ABSOLUTE) 2.1 x10E3/uL 1.4-7.0 LC_CB CBC/D/PLT+RPR+U LYMPHS (ABSOLUTE) 1.5 x10E3/uL 0.7-3.1 LC_CB CBC/D/PLT+RPR+U MONOCYTES(ABSOLUTE) 0.2 x10E3/uL 0.1-0.9 LC_CB CBC/D/PLT+RPR+U EOS (ABSOLUTE) 0.0 x10E3/uL 0.0-0.4 LC_CB CBC/D/PLT+RPR+U BASO (ABSOLUTE) 0.0 x10E3/uL 0.0-0.2 LC_CB CBC/D/PLT+RPR+U IMMATURE GRANULOCYTES 1 % Not Estab. LC_CB CBC/D/PLT+RPR+U IMMATURE GRANS (ABS) 0.1 x10E3/uL 0.0-0.1 LC_CB CBC/D/PLT+RPR+U NRBC LC_CB CBC/D/PLT+RPR+U HEMATOLOGY COMMENTS: LC_CB CBC/D/PLT+RPR+U SPECIFIC GRAVITY 1.010 1.005-1.030 LC_CB CBC/D/PLT+RPR+U PH 7.5 5.0-7.5 LC_CB CBC/D/PLT+RPR+U URINE-COLOR Yellow Yellow LC_CB CBC/D/PLT+RPR+U APPEARANCE Clear Clear LC_CB CBC/D/PLT+RPR+U WBC ESTERASE Negative Negative LC_CB CBC/D/PLT+RPR+U PROTEIN Negative Negative/Trace LC_CB CBC/D/PLT+RPR+U GLUCOSE Negative Negative LC_CB CBC/D/PLT+RPR+U KETONES Negative Negative LC_CB CBC/D/PLT+RPR+U OCCULT BLOOD Negative Negative LC_CB CBC/D/PLT+RPR+U BILIRUBIN Negative Negative LC_CB CBC/D/PLT+RPR+U UROBILINOGEN,SEMI-QN 0.2 mg/dL 0.2-1.0 LC_CB CBC/D/PLT+RPR+U NITRITE, URINE Negative Negative LC_CB CBC/D/PLT+RPR+U MICROSCOPIC EXAMINATION LC_CB Microscopic not indicated and not performed. CHLAMYDIA/GC AM CHLAMYDIA TRACHOMATIS, N Negative Negative LC_=G CHLAMYDIA/GC AM NEISSERIA GONORRHOEAE, N Negative Negative LC_=G URINE CULTURE, URINE CULTURE, ROUTINE Final report LC_=G URINE CULTURE, RESULT 1 LC_=G Mixed urogenital eugenio 10,000-25,000 colony forming units per mL == ==== Impression /Plan: 39 wks + 3 days intrauterine in active labor. Preparations in progress for delivery.
[2021-03-29 08:12] LABS: Absolute Lymphocyte Count 1.16 X10^3/uL (0.83-4.51); Absolute Neutrophil Count 4.2 X10^3/uL (2.0-7.7); Basophil# 0.02 X10^3/uL; Basophil% 0.3 % (0-1); Eosinophil# 0.05 X10^3/uL; Eosinophils% 0.9 % (0-5); Hematocrit 34.9 % (37-47); Hemoglobin 11.2 g/dL (12.0-15.0); Lymphocyte # 1.16 X10^3/ul (0.83-4.51); Lymphocyte % 19.9 % (19-41); Mean Corp Hgb Conc 32.1 g/dL (32-36); Mean Corpuscular Hgb 27.3 pg (27.0-32.0); Mean Corpuscular Volume 84.9 fL (81-99); Mean Platelet Vol. 12.4 fl (6.2-12.0); Monocyte# 0.39 X10^3/uL; Monocyte% 6.7 % (0-10); NRBC Flagged by Analyzer 0 % (0-5); Neutrophil # 4.21 X10^3/uL (2.7-7.7); POSITIVE COUNT YES; Platelet Count 129 K/mm3 (150-450); RBC Distribution Width CV 13.2 % (11.6-14.6); RBC Distribution Width SD 40.6 fl (35.1-43.9); Red Blood Count 4.11 M/mm3 (4.2-5.4); White Blood Count 5.8 K/mm3 (4.4-11.0)
[2021-03-29 08:13] LABS: Differential Indicated SCAN CRITERIA MET
[2021-03-29] MEDS: Lactated Ringers 500 ML 999 ML IV ×2 (08:42→10:15)
[2021-03-29 08:49] LABS: Platelet Estimate SLT DEC (ADEQ); Platelet Morphology LARGE
[2021-03-29] MEDS: fentaNYL-bupivacaine (epidural) 100 ML BAG EPIDURAL (10:17)
[2021-03-29] MEDS: Oxytocin 30 units/NS 500 ml 30 UNITS/500 ML IV.SOLN 334 UNITS IV (13:49)
--- NOTE | 2021-03-29 18:38 | EX.PCM.OBRPT ---
Maternal Data Information Final JUNIOR: 04/02/21 Final JUNIOR Source: US <20 weeks Gestational age: 39w3d Vaginal Delivery Operative Information Date of Procedure: 03/29/21 Pre-Operative Diagnosis: IUP Post-Operative Diagnosis: IUP Type of Anesthesia: Epidural Estimated Blood Loss: 250 cc Findings Description of Procedure: Spontaneous vaginal delivery of a viable female infant with Apgars of 8/9 from an occiput anterior presentation with clear amniotic fluid and normal three-vessel placenta. Cord around the neck x1 loose. No episiotomy or lacerations. Sponges okay. Delivery physician: Thien Duke MD. Presentation: Vertex Amniotic Membrane Rupture Type: Artificial Amniotic Fluid Description: Clear Placental Delivery Description: Spontaneous Placenta Disposition: [facility] Gender: Female (1 minute): 8 (5 minute): 9 Post Vaginal Delivery Medications Given After Delivery: IV Pitocin Episiotomy Description: None Laceration: None Complication Complications: None
--- NOTE | 2021-03-29 18:48 | PCM.DC ---
Documented by User: Dr. Thien Duke MD 03/29/21 18:51 Discharge Instructions Diet Discharge Diet: No restrictions Activity Discharge Activity: May Drive (In 1 to 2 days if not taking narcotic pain medication), May Shower and May Take a Tub Bath May resume sexual activity in: 4-6 weeks Additional Activity Instructions:: Nothing in the vagina for 4-6 weeks. You may return to work/school in 6 weeks. Dressing / Incision Call your doctor if you observe: Fever of 101 or Higher, Inability to urinate, Inability to have a bowel movement and Using more than 1 pad per hour Follow Up Care Please Follow Up With: Carlos Enrique Horvath MD When: Call [phone] to make an appointment with your doctor in 6 weeks. Test Results: Test results from this visit will be discussed in further detail at your follow-up appointment, if applicable. Discharge Plan Admission Admit Date/Time: 03/29/21 07:30 Primary Reason for Your Visit: Vaginal Delivery Attending Provider: Thien Duke Primary Care Provider: Kathy Lund NP Consulting Providers: Fanny Salomon Instructions Patient Instructions: After a Vaginal Additional Instructions / Restrictions: You make take Tylenol Extra Strength or NSAIDs over the counter for cramping or pain. Discharge Orders/Prescriptions Prescriptions: Continued vit,[id number] 1 TABLET tablet 1 tab PO DAILY RF: 0 Referrals / Follow Up: Kathy Lund NP, DIRECTOR OF CAPITAL GIVING-C [Primary Care Provider] - Disposition Disposition (needs filled in before D/C Order can be placed): Home, self care Documented by User: Dr. Fanny Apodaca MD 03/30/21 09:07 Discharge Instructions Dressing / Incision Call your doctor if you observe: Shortness of breath, Chest pain, Calf discomfort and Uncontrolled pain Follow Up Care Please Follow Up With: Carlos Enrique Horvath MD When: 3 weeks for telephone visit 6 weeks for visit Discharge Plan Admission Admit Date/Time: 03/29/21 07:30 Primary Reason for Your Visit: Vaginal Delivery Attending Provider: Thien Duke Primary Care Provider: Kathy Lund NP Consulting Providers: Fanny Salomon Instructions Patient Instructions: After a Vaginal Additional Instructions / Restrictions: You make take Tylenol Extra Strength or NSAIDs over the counter for cramping or pain. Discharge Orders/Prescriptions Prescriptions: Continued vit,[id number] 1 TABLET tablet 1 tab PO DAILY RF: 0 Referrals / Follow Up: Kathy Lund NP, DIRECTOR OF CAPITAL GIVING-C [Primary Care Provider] - Disposition Disposition (needs filled in before D/C Order can be placed): Home, self care
[2021-03-29] MEDS: Acetaminophen 500 MG Tablet PO (21:55)
[2021-03-30] MEDS: Ibuprofen 600 MG Tablet PO ×2 (02:20→11:54)
[2021-03-30 03:48] VITALS: BP 102/61; PULSE 59; RESP 18; TEMP 36.8
[2021-03-30] MEDS: Acetaminophen 500 MG Tablet 1000 MG PO (07:27)
[2021-03-30 07:55] VITALS: BP 114/63; PULSE 63; RESP 16; TEMP 36.6
--- NOTE | 2021-03-30 08:59 | PCM.PN.OB ---
Subjective Subjective Reports her bottom is sore, but she has relief using ice pack. Has mild cramping intermittently alleviated with NSAIDs. Denies heavy lochia. She is breast-feeding and infant is nursing well. Tolerates p.o., voiding without difficulty. Objective Data Objective Data Vital Signs: Vital Signs Temp Pulse Resp BP Pulse Ox 97.8 F 63 16 114/63 100 03/30/21 07:55 03/30/21 07:55 03/30/21 07:55 03/30/21 07:55 03/29/21 15:37 Oxygen Delivery Method Room Air Weight: 63.866 kg Body Mass Index (BMI) 21.4 Intake & Output: Intake and Output for Last 24 Hours 03/28/21 03/29/21 03/30/21 23:59 23:59 23:59 Intake Total 2680.00 / 2680.00 Output Total 2200 / 2200 Balance 480.00 / 480.00 Lab / Micro Data Result Diagrams: 03/29/21 07:53 Labs: Laboratory Results - last 24 hr 03/29/21 07:53 Blood Type B POSITIVE Antibody Screen NEGATIVE Micro: Microbiology 03/29/21 08:04 Mucosa - Nose SARS-CoV-2 Antigen (Rapid) - Final Physical Exam Const alert, oriented x3 and no apparent distress Resp normal respiratory effort and normal air movement Cardio regular rate, regular rhythm, S1 normal heart sound and S2 normal heart sound Uterus Palpation: uterus fundus firm and other OB fundus nontender Extremity no calf tenderness Extremity Narrative: No lower extremity edema Neuro oriented x3 Assessment & Plan (1) (spontaneous vaginal delivery): COMMENT: 25-year-old 3 para 3-0-0-3 day #1 PLAN: B positive HIV nonreactive, hep B surface antigen negative, rubella immune, RPR nonreactive Breast-feeding DC home today
[2021-03-30 15:00] VITALS: BP 106/63; PULSE 90; RESP 16
== END 2021-03-30 16:07 | disposition home or self-care (01) | DRG 807 ==
LOC: WPOUT 07:42 → WP 07:43
PROVIDERS: Admitting Provider Obstetrics & Gynecology; PCP Nurse Practitioner Primary Care; Referring Provider Obstetrics & Gynecology; Visit Provider Obstetrics & Gynecology
DX: O69.81X0 Labor and delivery complicated by cord around neck, without compression, not applicable or unspecified (principal); Z37.0 Single live birth; Z3A.39 39 weeks gestation of pregnancy
CPT/HCPCS: 59025; 59050; 85025; 86850; 86900; 86901; 87426; 99218; J7120; G0378

== ENCOUNTER → 2021-09-19 14:29 | Outpatient (CLI) | payer OTHER, SELFPAY ==
[2021-09-19 17:57] LABS: Vitamin D,25 Hydroxy 27.1 ng/mL
[2021-09-19 18:22] LABS: AST(SGOT) 12 U/L (15-37); Alanine Aminotransfer ALT/SGPT 25 U/L (13-56); Albumin, Serum 3.8 g/dL (3.2-5.0); Alkaline Phosphatase 69 U/L (45-117); Anion Gap 8 (5-15); BUN 9 mg/dL (7-18); BUN/Creat Ratio 14.9 RATIO (10-20); CRP < 2.90 mg/L (0.0-3.0); Calcium,Total 9.2 mg/dL (8.5-10.1); Chloride 108 mmol/L (98-107); EST Glomerular Filtration Rate 127 mL/min (>60); Est Glom Filt Rate - Afr Amer 154 mL/min (>60); Globulin 3.8 g/dL (2.2-4.2); Glucose 84 mg/dL (74-106); Potassium 3.7 mmol/L (3.5-5.1); Protein, Total 7.6 g/dL (6.4-8.2); Sodium Level 141 mmol/L (136-145)
[2021-09-21 18:08] LABS: Endomysial Antibody IgA Negative (Negative)
[2021-09-22 12:48] LABS: Immunoglobulin A 123 mg/dL (87-352); t-Transglutaminase IgA 5 U/mL (0-3)
== END ==
PROVIDERS: PCP Nurse Practitioner Primary Care; Referring Provider Internal Medicine Gastroenterology; Visit Provider Internal Medicine Gastroenterology
DX: K90.0 Celiac disease (principal)
CPT/HCPCS: 36415; 80053; 82306; 82784; 83516; 86140; 86255

== ENCOUNTER → 2023-10-24 | Outpatient (CLI) | payer OTHER, SELFPAY ==
[2023-10-24 10:08] LABS: Absolute Lymphocyte Count 1.03 X10^3/uL (0.83-4.51); Absolute Neutrophil Count 4.8 X10^3/uL (2.0-7.7); Basophil# 0.03 X10^3/uL; Basophil% 0.5 % (0-1); Eosinophil# 0.04 X10^3/uL; Eosinophils% 0.6 % (0-5); Hemoglobin 12.5 g/dL (12.0-15.0); Lymphocyte # 1.03 X10^3/ul (0.83-4.51); Lymphocyte % 16.4 % (19-41); Mean Corp Hgb Conc 32.9 g/dL (32-36); Mean Corpuscular Hgb 29.7 pg (27.0-32.0); Mean Corpuscular Volume 90.3 fL (81-99); Mean Platelet Vol. 10.4 fl (6.2-12.0); Monocyte# 0.37 X10^3/uL; Monocyte% 5.9 % (0-10); NRBC Flagged by Analyzer 0 % (0-5); Neutrophil % 76.3 % (47-70); Platelet Count 231 K/mm3 (150-450); RBC Distribution Width CV 13.4 % (11.6-14.6); RBC Distribution Width SD 43.6 fl (35.1-43.9); Red Blood Count 4.21 M/mm3 (4.2-5.4); White Blood Count 6.3 K/mm3 (4.4-11.0)
--- OUTSIDE RECORDS SUMMARY | 2023-10-24 10:14 | XMS RPT_ITS | CCD ---
Author Name Unknown Address [address] [place] [address] Organization [facility] Care Team Providers Care Insurance Legal Assistant Name Role Phone LARIMORE, CHRISTIAN (SUPERVISOR CELL ROOM) Unavailable Unavailab le LARIMORE, CHRISTIAN (SUPERVISOR CELL ROOM) Unavailable Unavailab le LARIMORE, CHRISTIAN (SUPERVISOR CELL ROOM) Unavailable Unavailab le LARIMORE, CHRISTIAN (SUPERVISOR CELL ROOM) Unavailable Unavailab le LARIMORE, CHRISTIAN (SUPERVISOR CELL ROOM) Unavailable Unavailab le LARIMORE, CHRISTIAN (SUPERVISOR CELL ROOM) Unavailable Unavailab le LARIMORE, CHRISTIAN (SUPERVISOR CELL ROOM) Unavailable Unavailab le SWAPNIL, VANI ADAN Unavailable Unavailable LARIMORE, CHRISTIAN (SUPERVISOR CELL ROOM) Unavailable Unavailab le SWAPNIL, VANI ADAN Unavailable Unavailable SWAPNIL, VANI ADAN Unavailable Unavailable SWAPNIL, VANI ADAN Unavailable Unavailable SWAPNIL, VANI ADAN Unavailable Unavailable SWAPNIL, VANI ADAN Unavailable Unavailable SWAPNIL, VANI ADAN Unavailable Unavailable POLIFRONE, SHABNAM MAVIS Unavailable Unavail able SWAPNIL, VANI ADAN Unavailable Unavailable SWAPNIL, VANI ADAN Unavailable Unavailable POLIFRONE, SHABNAM MAVIS Unavailable Unavail able SWAPNIL, VANI ADAN Unavailable Unavailable CHAPARRITA, EDILBERTO Unavailable Unavailable SWAPNIL, VANI ADAN Unavailable Unavailable KIRSIVAN, GALI GOFF Unavailable Unavaila ble CHAPARRITA EDILBERTO Unavailable Unavailable KIRGALI FINNEGAN Unavailable Unavaila ble DAJA PILLAI Unavailable Unavailable KIRSIVAN, GALIDANIELA GOFF Unavailable Unavaila ble ZUPONCIC, DORIS (RES) Unavailable Unava ilable ZUPONCIC, DORIS (RES) Unavailable Unava ilable ZUPONCIC, DORIS (RES) Unavailable Unava ilable LARIMORE, CHRISTIAN Unavailable Unavailable IMCA Unavailable Unavailable IMCA Unavailable Unavailable IMCA Unavailable Unavailable IMCA Unavailable Unavailable LARIMORE, CHRISTIAN Unavailable Unavailable IMCA Unavailable Unavailable LARIMORE, CHRISTIAN Unavailable Unavailable LARIMORE, CHRISTIAN Unavailable Unavailable IMCA Unavailable Unavailable LARIMORE, CHRISTIAN Unavailable Unavailable LARIMORE, CHRISTIAN Unavailable Unavailable IMCA Unavailable Unavailable SWAPNIL, D. R Unavailable Unavailable LARIMORE, CHRISTIAN Unavailable Unavailable IMCA Unavailable Unavailable LARIMORE, CHRISTIAN Unavailable Unavailable IMCA Unavailable Unavailable SWAPNIL, D. R Unavailable Unavailable SWAPNIL, D. R Unavailable Unavailable IMCA Unavailable Unavailable SWAPNIL, D. R Unavailable Unavailable SWAPNIL, D. R Unavailable Unavailable IMCA Unavailable Unavailable SWAPNIL, D. R Unavailable Unavailable IMCA Unavailable Unavailable POLIFRONE, SHABNAM B Unavailable Unavailable SWAPNIL, D. R Unavailable Unavailable IMCA Unavailable Unavailable SWAPNIL, D. R Unavailable Unavailable IMCA Unavailable Unavailable SWAPNIL, D. R Unavailable Unavailable POLIFRONE, SHABNAM B Unavailable Unavailable IMCA Unavailable Unavailable SWAPNIL, D. R Unavailable Unavailable IMCA Unavailable Unavailable CHAPARRITA, EDILBERTO Unavailable Unavailable SWAPNIL, D. R Unavailable Unavailable IMCA Unavailable Unavailable ZUPONCIC, DORIS Unavailable Unavailable CHAPARRITA, EDILBERTO Unavailable Unavailable IMCA Unavailable Unavailable KIRVEN, GALI S Unavailable Unavailable CHAPARRITA, EDILBERTO Unavailable Unavailable FREYA, DAJA Unavailable Unavailable KIRVEN, GALI S Unavailable Unavailable KIRVEN, GALI S Unavailable Unavailable FREYA, DAJA Unavailable Unavailable FREYA, DAJA Unavailable Unavailable ZUPONCIC, DORIS Unavailable Unavailable ZUPONCIC, DORIS Unavailable Unavailable ZUPONCIC, DORIS Unavailable Unavailable IMCA Unavailable Unavailable ZUPONCIC, DORIS Unavailable Unavailable ZUPONCIC, DORIS Unavailable Unavailable ZUPONCIC, DORIS Unavailable Unavailable IMCA Unavailable Unavailable BRANDT CIGAR SORTER-COFFEE BLENDER, LUIS S Primary Care Physicia n Luis Carlton Primary Care Provider [phone] BRANDT [employer]IG[employer] S[employer]COFFEE BLENDER, LUIS S Attending Unava ilable BRANDT CIGAR SORTER-COFFEE BLENDER, LUIS S Primary Care Unava ilable BRANDT CIGAR SORTER-COFFEE BLENDER, LUIS S Attending Unava ilable BRANDT CIGAR SORTER-COFFEE BLENDER, LUIS S Primary Care Unava ilable BRANDT CIGAR SORTER-COFFEE BLENDER, LUIS S Attending Unava ilable BRANDT CIGAR SORTER[employer]COFFEE BLENDER, LUIS S Primary Care Unava ilable LUIS CARLTON S Primary Care Unavailable ELISE CROOK Attending Unavailable LUIS CARLTON Primary Care Unavailable ELISE CROOK Attending Unavailable LUIS CARLTON Primary Care Unavailable ELISE CROOK Referring Unavailable TEX BAL NIK Attending Unavaila LUIS Freitas Primary Care Unavailable LUIS CARLTON Primary Care Unavailable ELISE CROOK Referring Unavailable Allergies Allergy Classification Reported Allergen(s) Allergy Type Date of Onset Reaction(s) Facility (11 sources) Penicillins; Translations: [PENICILLINS] Propensity to adverse reactions to drug (disorder) 8 Other: See Comments [facility] Other [place] [facility] Medications Current Medications Medication Drug Class(es) Dates Sig (Normalized) Sig (Original) acetaminophen 500 mg oral tablet (5 sources) Start: 05-12-2019 acetaminophen 500 mg oral tablet Dose : 500 mg = 1 tab(s), Oral, q6hr, PRN for pain, 0 Refill(s) Start Date: 05/12/19 Status: Ordered azithromycin 250 mg oral tablet (1 source) Macrolide Antimicrobial Start: 01-19-2022 End: 01-24-2022 Zithromax 250 mg oral tablet Dose : 250 mg = 1 tab(s), Oral, qDay, follow directions on Z-Darrel, X 5 day(s), # 6 tab(s), 0 Refill(s), 01/24/22 9:30:00 EDT, Pharmacy: [facility]/pharmacy #[id number], 174, cm, 01/19/22 9:12:00 EDT, Height, 52.6 Start Date: 01/19/22 Stop Date: 01/24/22 Status: Ordered budesonide 3 mg delayed release oral capsule (2 sources) Corticosteroid Start: 02-18-2023 budesonide 3 mg oral delayed release capsule Dose : 9 mg = 3 cap(s), Oral, qAM, 0 Refill(s) Start Date: 02/18/23 Status: Ordered Completed/Discontinued Medications Medication Drug Class(es) Dates Sig (Normalized) Sig (Original) ALIGN PROBIOTIC RESISTANCE CAPSULE (2 sources) ALIGN PROBIOTIC RESISTANCE CAPSULE Take by mouth. 0 Active Problems Active Problems Problem Classification Problem Date Documented Da te Episodic/Chronic Fluid and electrolyte disorders (1 source) Dehydration; Translations: [Dehydration] Onset: 08-30-2021 Episodic Nausea and vomiting (1 source) Vomiting; Translations: [Vomiting, unspecified] Onset: 08-30-2021 Episodic Noninfectious gastroenteritis (1 source) Lymphocytic colitis; Translations: [Other and unspecified noninfectious gastroenteritis and colitis] Chronic Other complications of (1 source) Outcome of delivery, unspecified; Translations: [Outcome of delivery, unspecified] Onset: 06-29-2018 Episodic Other gastrointestinal disorders (4 sources) Celiac disease; Translations: [Celiac disease] 09-11-2021 Chronic Other gastrointestinal disorders (1 source) Celiac disease; Translations: [Celiac disease] Onset: 12-20-2022 Chronic Other gastrointestinal disorders (3 sources) Diarrhea; Translations: [Diarrhea, unspecified] Onset: 08-30-2021 Episodic Other liver diseases (3 sources) Elevated liver enzymes level 01-15-2022 Episodic Other and delivery including normal (4 sources) Encounter for supervision of normal first , third trimester; Translations: [Encounter for supervision of normal first , second trimester] Onset: 02-03-2018 Episodic Other screening for suspected conditions (not mental disorders or infectious disease) (2 sources) Encounter for screening for malformations; Translations: [Encounter for screening, unspecified] Onset: 12-09-2017 Ovarian cyst (1 source) Corpus luteum cyst of left ovary; Translations: [Corpus luteum cyst of left ovary] Onset: 12-09-2017 Residual codes; unclassified (1 source) 32 weeks gestation of ; Translations: [32 weeks gestation of ] Onset: 05-19-2018 Residual codes; unclassified (1 source) 17 weeks gestation of ; Translations: [17 weeks gestation of ] Onset: 02-03-2018 Residual codes; unclassified (1 source) 20 weeks gestation of ; Translations: [20 weeks gestation of ] Onset: 02-24-2018 Residual codes; unclassified (1 source) 13 weeks gestation of ; Translations: [13 weeks gestation of ] Onset: 01-06-2018 Residual codes; unclassified (1 source) 28 weeks gestation of ; Translations: [28 weeks gestation of ] Onset: 04-21-2018 Residual codes; unclassified (1 source) 33 weeks gestation of ; Translations: [33 weeks gestation of ] Onset: 05-28-2018 Residual codes; unclassified (1 source) 9 weeks gestation of ; Translations: [9 weeks gestation of ] Onset: 12-09-2017 Residual codes; unclassified (1 source) 30 weeks gestation of ; Translations: [30 weeks gestation of ] Onset: 05-04-2018 Residual codes; unclassified (1 source) 36 weeks gestation of ; Translations: [36 weeks gestation of ] Onset: 06-16-2018 Residual codes; unclassified (1 source) 37 weeks gestation of ; Translations: [37 weeks gestation of ] Onset: 06-22-2018 Residual codes; unclassified (1 source) 24 weeks gestation of ; Translations: [24 weeks gestation of ] Onset: 03-24-2018 Unclassified (1 source) Unknown / UNK(Unknown) Onset: 06-16-2018 Unclassified (1 source) Lymphocytic colitis 07-08-2023 Past or Other Problems Problem Classification Problem Date Documented Da te Episodic/Chronic Abdominal pain (4 sources) Left lower quadrant pain; Translations: [Left lower quadrant pain] Onset: 01-29-2023 Episodic Hemorrhage during ; abruptio placenta; placenta previa (2 sources) Other antepartum hemorrhage, first trimester; Translations: [Antepartum hemorrhage, unspecified, first trimester] Onset: 12-09-2017 Episodic Other complications of ; puerperium affecting management of mother (1 source) Maternal care for other (suspected) abnormality and damage, not applicable or unspecified; Translations: [Maternal care for other (suspected) abnormality and damage, not applicable or unspecified] Onset: 02-24-2018 Episodic Other complications of ; puerperium affecting management of mother (1 source) Maternal care for (suspected) abnormality and damage, unspecified, not applicable or unspecified; Translations: [Maternal care for (suspected) abnormality and damage, unspecified, not applicable or unspecified] Onset: 02-24-2018 Episodic Other complications of (1 source) Maternal care for other known or suspected poor growth, third trimester, not applicable or unspecified; Translations: [Maternal care for other known or suspected poor growth, third trimester, not applicable or unspecified] Onset: 05-28-2018 Episodic Other complications of (1 source) Uterine size-date discrepancy, third trimester; Translations: [Uterine size-date discrepancy, third trimester] Onset: 05-19-2018 Episodic Other complications of (1 source) Low weight gain in , third trimester; Translations: [Low weight gain in , third trimester] Onset: 06-16-2018 Episodic Other complications of (1 source) Maternal care for other abnormalities of gravid uterus, first trimester; Translations: [Maternal care for other abnormalities of gravid uterus, first trimester] Onset: 12-09-2017 Episodic Other gastrointestinal disorders (1 source) Diarrhea, unspecified; Translations: [Diarrhea, unspecified type] Onset: 01-29-2023 Episodic Polyhydramnios and other problems of amniotic cavity (1 source) Other specified disorders of amniotic fluid and membranes, first trimester, not applicable or unspecified; Translations: [Other specified disorders of amniotic fluid and membranes, first trimester, not applicable or unspecified] Onset: 12-09-2017 Episodic Unclassified (1 source) Low weight gain in , third trimester Onset: 06-16-2018 Results Test Name Value Interpretation Reference Range Facil ity Vital Signs Date Time Vital Sign Value Performing Clinician Facility 12-20-2022 08:48-0500 Body height 172.7 cm Elise Waldo PA-C Work Phone: [facility] 12-20-2022 08:48-0500 Body weight 54.07 kg Elise Waldo PA-C Work Phone: [facility] 12-20-2022 08:48-0500 Diastolic blood pressure 72 mm[Hg] Elise Waldo PA-C Work Phone: [facility] 12-20-2022 08:48-0500 Heart rate 99 /min Elise Waldo PA-C Work Phone: [facility] 12-20-2022 08:48-0500 Systolic blood pressure 110 mm[Hg] Elise Waldo PA-C Work Phone: [facility] 08-30-2021 18:17-0500 Body temperature 98.06 [degF] BECKY PEMBERTON MD [facility] 08-30-2021 18:17-0500 Diastolic blood pressure 85 mm[Hg] BECKY PEMBERTON MD [facility] 08-30-2021 18:17-0500 Heart rate 108 /min BECKY PEMBERTON MD [facility] 08-30-2021 18:17-0500 Mean blood pressure 97 mm[Hg] BECKY PEMBERTON MD [facility] 08-30-2021 18:17-0500 Respiratory rate 16 /min BECKY PEMBERTON MD [facility] 08-30-2021 18:17-0500 Systolic blood pressure 121 mm[Hg] BECKY PEMBERTON MD [facility] Encounters Encounter Date Encounter Type Care Provider Facility Start: 10-03-2023 End: 10-03-2023 ambulatory LUIS CARLTON Facility:[facility] Start: 07-10-2023 End: 07-11-2023 ambulatory LUIS CARLTON [employer]ER Facility:[facility] Start: 07-10-2023 End: 07-10-2023 Patient encounter procedure LUIS CARLTON C[employer] BL[employer]ER [facility] Start: 04-01-2023 End: 04-02-2023 ambulatory LUIS CARLTON [employer]ER Facility:[facility] Start: 04-01-2023 End: 04-01-2023 Patient encounter procedure LUIS CARLTON CIG[employer] BL[employer]ER [facility] Start: 03-24-2023 End: 03-25-2023 ambulatory LUIS CARLTON [employer]ER Facility:[facility] Start: 02-09-2023 Refill Elise valdez PA-C Work Phone: [facility] Procedures Date Procedure Procedure Detail Performing Clinician Start: 06-29-2018 Antibody screen CHRISTIAN BOWENS Plan of Treatment Date Care Activity Detail Author Start: 05-11-2028 Urine microalbumin profile DTAP,TDAP,TD (2 - Td or Tdap) [facility] Start: 06-13-2023 Influenza vaccination INFLUENZ A (Season Ended) [facility] Start: 12-20-2022 End: 02-19-2023 25-hydroxyvitamin D3 [Mass/volume] in Serum or Plasma [facility] Work Phone: Immunizations Immunization Date Immunization Notes Care Provider Omar jacques 06-09-2019 tetanus toxoid, redu shreyas diphtheria toxoid, and acellular pertussis vaccine, adsorbed BECKY PEMBERTON MD [facility] Payers Date Payer Category Payer Private Health Insurance [facility] CHOICE PLUS [id number] 2022-Present [phone] [address] [place] [address] HMO [id number] 2022 Private Health Insurance [id number] 1995 Unknown [id number] 2.840.1.653561.3.579. 2.278 1995 Unknown [id number] 2.16840.1.973731.3.579. 2.278 1995 Unknown [id number] 2.840.1.153485.3.579. 2.278 1995 Unknown [id number] 2.16840.1.626366.3.579. 2.278 1995 Unknown [id number] 2.16.840.1.010114.3.579. 2.278 1995 Unknown [id number] 2.16.840.1.202424.3.579. 2.278 1995 Unknown [id number] 2.16.840.1.849419.3.579. 2.278 1995 Unknown [id number] 2.16840.1.120419.3.579. 2.278 1995 Unknown [id number] 2.16.840.1.193155.3.579. 2.278 1995 Unknown [id number] 2.16840.1.941411.3.579. 2.278 1995 Unknown [id number] 2.16.840.1.173299.3.579. 2.278 1995 Unknown [id number] 2.16840.1.657402.3.579. 2.278 1995 Unknown [id number] 2.16840.1.811878.3.579. 2.278 1995 Unknown [id number] 2.16840.1.940216.3.579. 2.278 1995 Unknown [id number] 2.16840.1.570447.3.579. 2.278 1995 Unknown [id number] 2.840.1.181487.3.579. 2.278 1995 Unknown [id number] 2.16840.1.761027.3.579. 2.278 1995 Unknown [id number] 2.16840.1.600280.3.579. 2.278 1995 Unknown [id number] 2.16840.1.794188.3.579. 2.278 1995 Unknown [id number] 2.840.1.310042.3.579. 2.278 1995 Unknown [id number] 2.16840.1.199178.3.579. 2.278 1995 Unknown [id number] 2.16840.1.709141.3.579. 2.278 1995 Unknown [id number] 2.16840.1.712311.3.579. 2.278 1995 Unknown [id number] 2.16840.1.096839.3.579. 2.278 1995 Unknown [id number] 2.16840.1.027059.3.579. 2.627 1995 Unknown [id number] 2.16.840.1.479549.3.579. 2.627 1995 Unknown [id number] 2.16.840.1.309938.3.579. 2.627 Unknown [id number] Social History Date Type Detail Facility Start: 11-15-2019 End: 12-20-2022 Never smoked tobacco (finding) [facility] Assigned At [facility] Start: 12-20-2022 Tobacco use and exposure Smokeless tobacco non-user [facility] Start: 12-20-2022 End: 01-31-2023 Alcohol intake Current non-drinker of alcohol (finding) [facility] Start: 1995 Sex Assigned At Not on file [facility] Clinical Notes 06-29-2018 to 10-03-2023 RadiologyRadiologyPatient InstructionsStalexander Haas PA-C - 12/20/2022 8:46 AM EST Note Date & Type Note Facility 10-03-2023 Note HNO ID: [id number] Author: Elise Crook PA-C Service: ? Author Type: Physician Nuclear Powerplant Mechanic Helper Type: Progress Notes Filed: 10/03/2023 9:34 AM Note Text: CHIEF COMPLAINT: Patient presents with: Recheck: Colonoscopy- pt states she is and is having some diarrhea HPI Sumeet Brambila is a 28 year old female here today for Recheck (Colonoscopy- pt states she is and is having some diarrhea ) PMHx of celiac disease Patient tells me that she has been doing well. She is currently 6 weeks at this time with some more diarrhea. Had her IUD removed and notes all her pain is gone. Notes that she did very well on Budesonide and finished it. Going about 2-3x a day. Trying to stick gluten free but does have cross contamination. She is wondering why she cannot gain weight. Colonoscopy 01/29/2023: Impression: - The examined portion of the ileum was normal. - The entire examined colon is normal. Biopsied. Recommendation: - Resume previous diet. - Continue present medications. - Await pathology results. - No repeat colonoscopy due to age. - Patient has a contact number available for emergencies. The signs and symptoms of potential delayed complications were discussed with the patient. Return to normal activities tomorrow. Written discharge instructions were provided to the patient. - The patient is not currently taking anticoagulant or antiplatelet agents. FINAL DIAGNOSIS A. Colon, random biopsy: - Lymphocytic colitis. Last OV with nc 12/20/2022: Assessment/Plan (K90.0) Celiac disease (primary encounter diagnosis) (R10.32) LLQ pain (R19.7) Diarrhea, unspecified type 1. Celiac disease -- Patient with celiac disease diagnosed in 2019. Trying to be 100% gluten free -- Will check celiac panel, Vitamin B12, Vitamin D -- Having LLQ pain and diarrhea. Will check pancreatic elastase, fecal calprotectin - CELIAC SCREEN WITH REFLEX; Future - VITAMIN B12 BLOOD; Future - VITAMIN D 25 HYDROXY; Future - CALPROTECTIN,FECAL 2. LLQ pain -- Patient with chronic LLQ pain and diarrhea. Pain is worse with eating. -- Will check calprotectin, pancreatic elastase -- Will check celiac panel, Vitamin B12, Vitamin D -- Colonoscopy for further evaluation - CELIAC SCREEN WITH REFLEX; Future - VITAMIN B12 BLOOD; Future - VITAMIN D 25 HYDROXY; Future - CALPROTECTIN,FECAL - COLONOSCOPY DIAGNOSTIC; Future 3. Diarrhea, unspecified type -- Patient with chronic LLQ pain and diarrhea. Pain is worse with eating. -- Will check calprotectin, pancreatic elastase -- Will check celiac panel, Vitamin B12, Vitamin D -- Colonoscopy for further evaluation - CELIAC SCREEN WITH REFLEX; Future - VITAMIN B12 BLOOD; Future - VITAMIN D 25 HYDROXY; Future - CALPROTECTIN,FECAL - COLONOSCOPY DIAGNOSTIC; Future Follow up in office PRN. Current Outpatient Medications Medication Sig PNV no.95/ferrous fum/folic ac ( ORAL) Take by mouth. ALIGN PROBIOTIC RESISTANCE CAPSULE Take by mouth. (Patient not taking: Reported on 10/03/2023) cholecalciferol (VITAMIN D3) 50 mcg (2,000 unit) tablet Take 2,000 Units by mouth once daily. (Patient not taking: Reported on 10/03/2023) No current facility-administered medications for this visit. Facility-Administered Medications Ordered in Other Visits Medication Dose Route Frequency lidocaine (PF) 10 mg/mL (1 %) 1-2 mg injection (XYLOCAINE) 0.1-0.2 mL INTRADERMAL PRN lactated ringers iv infusion 30 mL/hr INTRAVENOUS CONTINUOUS ALLERGIES Allergen Reactions Penicillins Other: See Comments Unknown- as a child Social History Tobacco Use Smoking status: Never Smokeless tobacco: Never Vaping Use Vaping Use: Never used Substance Use Topics Alcohol use: No Drug use: No PAST MEDICAL HISTORY Diagnosis Date Anemia as a teenager. was treated with oral iron supplements Celiac disease Mononucleosis 08/12/2017 UTI (urinary tract infection) 10/27/2017 PAST SURGICAL HISTORY Procedure Laterality Date COLONOSCOPY SCREENING 01/29/2023 Lymphocytic colitis EGD W/O BRSH SPEC VARICIES INJ 10/20/2018 PAST SURGICAL HISTORY OF wisdom teeth FAMILY HISTORY Problem Relation Age of Onset other (bipolar) Mother hx preeclampsia Depression Father Diabetes Maternal Grandmother Heart Maternal Grandfather other (parkinson) Paternal Grandfather Breast Cancer Paternal Aunt age at diagnosis 60 Colon Cancer No Family History Ulcerative Colitis No Family History Crohn's Disease No Family History REVIEW OF SYSTEMS Review of Systems Gastrointestinal: Positive for diarrhea. All other systems reviewed and are negative. PHYSICAL EXAM BP 106/70 Pulse 60 Ht 5' 8 (1.73m) Wt 118 lb 12.8 oz (53.9kg) LMP 01/04/2023 BMI 18.07 kg/(m2). Physical Exam Constitutional: Appearance: Normal appearance. Comments: thin HENT: Head: Normocephalic and atraumatic. Eyes: General: No scleral icterus. (more content not included)... [facility] 07-13-2023 Note . MICRO - Microbiology PROCEDURE: Stool Culture [^1 *1] SOURCE: Stool BODY SITE: COLLECTED DATE/TIME: 07/10/2023 12:14 EDT RECEIVED DATE/TIME: 07/10/2023 19:32 EDT START DATE/TIME: 07/10/2023 19:32 EDT FREE TEXT SOURCE: FINAL REPORTS Final Report [] Verified Date/Time/Personnel: 07/13/2023 13:53 EDT Normal stool eugenio present. Salmonella: Negative Shigella: Negative Campylobacter: Negative PRELIMINARY REPORTS Preliminary Report [] Verified Date/Time/Personnel: 07/12/2023 13:24 EDT Normal stool eugenio present. Final report to follow. Interpretive Data ^1: Culture Stool Requests for alternative pathogens including Yersinia, E. coli 0157, C. difficile toxin, Rotavirus, Giardia and parasites require specific requests. Performing Locations *1: This test was performed at: [address], [facility]- , [facility] ([place]) 07-11-2023 Note . MICRO - Microbiology PROCEDURE: Shiga Toxins 1 and 2 [[id number]: [id number] ^1 *1] SOURCE: Stool BODY SITE: COLLECTED DATE/TIME: 07/10/2023 19:32 EDT RECEIVED DATE/TIME: 07/10/2023 19:32 EDT START DATE/TIME: 07/10/2023 19:32 EDT FREE TEXT SOURCE: FINAL REPORTS Final Report [] Verified Date/Time/Personnel: 07/11/2023 11:45 EDT Absence of Shiga toxin 1 Absence of Shiga toxin 2 Order Comments O1: Shiga Toxins 1 and 2 ordered by lab as part of Culture Stool Panel Interpretive Data ^1: Shiga Toxins 1 and 2 Testing performed by immunochromatography. Performing Locations *1: This test was performed at: [address], [facility] , [facility] ([place]) 07-10-2023 Evaluation + Plan note Diagnostic Tests PendingStool Culture 07/10/23Shiga Toxins 1 and 2 07/10/23 Future Scheduled TestsUS Groin Left 03/24/23 [facility] 03-24-2023 Evaluation + Plan note Future Scheduled TestsUS Groin Left 03/24/23 [facility] 01-29-2023 Note HNO ID: [id number] Author: Mian Epstein RN Service: Gastroenterology Author Type: Registered Nurse Type: Nursing Progress Note Filed: 01/29/2023 1:08 PM Note Text: Physician at bedside. [facility] 01-29-2023 Note HNO ID: [id number] Author: Brittnee Franco RN Service: ? Author Type: Registered Nurse Type: Nursing Progress Note Filed: 01/29/2023 12:29 PM Note Text: Report given to mian epstein rn [facility] 01-29-2023 Note HNO ID: [id number] Author: Brittnee Franco RN Service: ? Author Type: Registered Nurse Type: Nursing Progress Note Filed: 01/29/2023 12:28 PM Note Text: Encouraged to pass air. [facility] 12-20-2022 Note HNO ID: [id number] Author: Elise Haas PA-C Service: ? Author Type: Physician Nuclear Powerplant Mechanic Helper Type: Progress Notes Filed: 12/20/2022 9:23 AM Note Text: CHIEF COMPLAINT: Patient presents with: Celiac Disease: Abdominal cramping LLQ, diarrhea, gas- trying to stay gluten free This consult was requested by Self for an opinion regarding celiac disease. My final recommendations will be communicated to the requesting health care provider by way of the shared medical record for internal providers or letter via the Interview [employer] for external providers. HPI: Sumeet Brambila is a 27 year old female who presents for Celiac Disease (Abdominal cramping LLQ, diarrhea, gas- trying to stay gluten free ). PMHx of celiac disease Patient tells me that she has been dealing with LLQ pain, this is pretty constant. Can worsen with eating. Moving bowels about 2-3x a day, usually loose/diarrhea. Moving bowels does not help her bowel movements. No rectal bleeding. Tries to be 100% gluten free but can have cross contamination with her kids. No smoking or alcohol use. Record Review: [facility] / Outside records reviewed. PAST MEDICAL HISTORY Diagnosis Date Anemia as a teenager. was treated with oral iron supplements Celiac disease Mononucleosis 08/12/2017 UTI (urinary tract infection) 10/27/2017 PAST SURGICAL HISTORY Procedure Laterality Date EGD W/O BRSH SPEC VARICIES INJ 10/20/2018 PAST SURGICAL HISTORY OF wisdom teeth Allergies: ALLERGIES Allergen Reactions Penicillins Other: See Comments Unknown- as a child Medications: ALIGN PROBIOTIC RESISTANCE CAPSULE Take by mouth. cholecalciferol (VITAMIN D-3) 50 mcg (2,000 unit) tablet Take 2,000 Units by mouth once daily. 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 Are you taking any blood thinners? No Physical Examination: BP 110/72 Pulse 99 Ht 5' 8 (1.73m) Wt 119 lb 3.2 oz (54.1kg) LMP 10/06/2017 BMI 18.13 kg/(m2). Physical Exam Constitutional: Appearance: Normal appearance. She is normal weight. HENT: Head: Normocephalic and atraumatic. Eyes: General: No scleral icterus. Extraocular Movements: Extraocular movements intact. Conjunctiva/sclera: Conjunctivae normal. Pupils: Pupils are equal, round, and reactive to light. Cardiovascular: Rate and Rhythm: Normal rate and regular rhythm. Pulses: Normal pulses. Heart sounds: Normal heart sounds. Pulmonary: Effort: Pulmonary effort is normal. Breath sounds: Normal breath sounds. Abdominal: General: Abdomen is flat. Bowel sounds are normal. Palpations: Abdomen is soft. Tenderness: There is abdominal tenderness (mild LLQ TTP). Musculoskeletal: General: Normal range of motion. Cervical back: Normal range of motion and neck supple. Skin: General: Skin is warm and dry. Coloration: Skin is not jaundiced. Neurological: General: No focal deficit present. Mental Status: She is alert and oriented to person, place, and time. Psychiatric: Mood and Affect: Mood normal. Behavior: Behavior normal. Thought Content: Thought content normal. Judgment: Judgment normal. Assessment/Plan (K90.0) Celiac disease (primary encounter diagnosis) (R10.32) LLQ pain (R19.7) Diarrhea, unspecified type 1. Celiac disease -- Patient with celiac disease diagnosed in 2019. Trying to be 100% gluten free -- Will check celiac panel, Vitamin B12, Vitamin D -- Having LLQ pain and diarrhea. Will check pancreatic elastase, fecal calprotectin - CELIAC SCREEN WITH REFLEX; Future - VITAMIN B12 BLOOD; Future - VITAMIN D 25 HYDROXY; Future - CALPROTECTIN,FECAL 2. LLQ pain -- Patient with chronic LLQ pain and diarrhea. Pain is worse with eating. -- Will check calprotectin, pancreatic elastase -- Will check celiac panel, Vitamin B12, Vitamin D -- Colonoscopy for further evaluation - CELIAC SCREEN WITH REFLEX; Future - VITAMIN B12 BLOOD; Future - VITAMIN D 25 HYDROXY; Future - CALPROTECTIN,FECAL - COLONOSCOPY DIAGNOSTIC; Future 3. Diarrhea, unspecified type -- Patient with chronic LLQ pain and diarrhea. Pain is worse with eating. -- Will check calprotectin, pancreatic elastase -- Will check celiac panel, Vitami (more content not included)... [facility] 12-20-2022 Instructions Elise Haas PA-C - 12/20/2022 9:01 AM EST Images from the original note were not included. Bowel Preparation Instructions for: Miralax-Gatorade Preparations IF YOU DO NOT FOLLOW THESE DIRECTIONS, YOUR COLONOSCOPY WILL BE CANCELLED. Paredes Instructions: Your bowel must be empty so that your doctor can clearly view your colon. Follow all of the instructions in this handout EXACTLY as they are written. Do NOT eat any solid food the ENTIRE day before your colonoscopy. Buy your bowel preparation at least 5 days before your colonoscopy. Four (4) Dulcolax laxative tablets containing 5mg of bisacodyl each (NOT Dulcolax stool softener) One (1) 8.3oz. bottle Miralax (238 grams) or generic equivalent 2 x 32oz. Bottles of Gatorade (NOT RED) Diabetic Patients: Use G2 (Gatorade 2) TRANSPORTATION on the Day of Your Exam A responsible adult MUST be present with you at Check In prior to your colonoscopy and REMAIN in the endoscopy area until you are discharged. You are NOT ALLOWED to drive, take a taxi or bus, or leave the Endoscopy Center ALONE. If you do not have a responsible pole truck driver (family member or friend) with you to take you home, your exam cannot be done with sedation and will be cancelled. Please bring a list of all of your current medications, including any [id number] medications with you. Medications If you take insulin, diabetic medications or blood thinners such as Coumadin (warfarin), Plavix (clopidogrel), Ticlid (ticlopidine hydrochloride), Agrylin (anagrelide), Xarelto (Rivaroxaban), Pradaxa (Dabigatran), Eliquis (Apixaban), and Effient (Prasugrel). You MUST call the doctors who orders those medicines for instructions on altering the dosage before your colonoscopy. All other medications should be taken the day of the exam with a sip of water including ASPIRIN. Five (5) Days Before Your Colonoscopy Do NOT take medicines that stop diarrhea - such as Imodium, Kaopectate, or Pepto Bismol. Do NOT take fiber supplements - such as Metamucil, Citrucel, or Perdiem. Do NOT take products that contain iron - such as multi-vitamins (the label lists what is in the products). Three (3) Days Before Your Colonoscopy Do NOT eat high-fiber foods - such as popcorn, beans, seeds (flax, sunflower, quinoa), multigrain bread, nuts, salad/vegetables, or fresh and dried fruit. 1 Bowel Preparation Instructions for: Miralax-Gatorade Preparations One (1) Day Before Your Colonoscopy Only drink clear liquids the ENTIRE DAY before your colonoscopy. Do NOT eat any solid foods. Drink at least 8 ounces of clear liquids every hour after waking up. The clear liquids you can drink include: Clear Liquid (NO RED LIQUIDS) DO NOT DRINK Gatorade, Pedialyte or Powerade Clear broth or bouillon Coffee or tea (no milk or non-dairy creamer) Carbonated and non-carbonated soft drinks Sunny-Aid or other fruit flavored drinks Strained fruit juices (no pulp) Jell-O, popsicles, hard candy Water Alcohol Milk or non-dairy creamers Noodles or vegetables in soup Juice with pulp Liquid you cannot see through Do not use tobacco/vaping products Mix 1/2 of Miralax bottle (119 grams) in each 32 ounces of Gatorade bottle until dissolved. Keep cool in the refrigerator. DO NOT ADD ICE. The bowel preparation solution will be consumed in two parts. Part 1 5:00 PM - Evening before your colonoscopy Take 4 Dulcolax tablets. 6 PM - Evening before your colonoscopy Drink 32 oz. of the mixed solution. Drink an 8 oz. glass of bowel preparation every 15 minutes for a total of 4 glasses. Fifteen (15) minutes later, drink an 8 oz. glass of of clear liquids every 15 minutes for a total of 2 glasses. You may continue to drink clear liquids till midnight. Part 2 On the day of your colonoscopy you may drink clear liquids up to (three) 3 hours prior to procedure. 4 1/2 hours before your colonoscopy Take another 32 oz. bottle of mixed solution. Drink an 8 oz. glass of bowel prep every 15 minutes for a total of 4 glasses. Fifteen (15) minutes later, drink an 8 oz. glass of clear liquids every 15 minutes for a total of 2 glasses. You may continue to drink clear liquids up to (three) 3 hours before your exam. 2 09/2019 documented in this encounter [facility] 12-20-2022 History of Present illness Narrative CHIEF COMPLAINT: Patient presents with: Celiac Disease: Abdominal cramping LLQ, diarrhea, gas- trying to stay gluten free This consult was requested by Self for an opinion regarding celiac disease. My final recommendations will be communicated to the requesting health care provider by way of the shared medical record for internal providers or letter via the Interview [employer] Service for external providers. HPI: Sumeet Brambila is a 27 year old female who presents for Celiac Disease (Abdominal cramping LLQ, diarrhea, gas- trying to stay gluten free ). PMHx of celiac disease Patient tells me that she has been dealing with LLQ pain, this is pretty constant. Can worsen with eating. Moving bowels about 2-3x a day, usually loose/diarrhea. Moving bowels does not help her bowel movements. No rectal bleeding. Tries to be 100% gluten free but can have cross contamination with her kids. No smoking or alcohol use. Record Review: [facility] / Outside records reviewed. PAST MEDICAL HISTORY Diagnosis Date Anemia as a teenager. was treated with oral iron supplements Celiac disease Mononucleosis 08/12/2017 UTI (urinary tract infection) 10/27/2017 PAST SURGICAL HISTORY Procedure Laterality Date EGD W/O BRSH SPEC VARICIES INJ 10/20/2018 PAST SURGICAL HISTORY OF wisdom teeth Allergies: ALLERGIES Allergen Reactions Penicillins Other: See Comments Unknown- as a child Medications: ALIGN PROBIOTIC RESISTANCE CAPSULE Take by mouth. cholecalciferol (VITAMIN D-3) 50 mcg (2,000 unit) tablet Take 2,000 Units by mouth once daily. 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 Are you taking any blood thinners? No Physical Examination: BP 110/72 Pulse 99 Ht 5' 8 (1.73m) Wt 119 lb 3.2 oz (54.1kg) LMP 10/06/2017 BMI 18.13 kg/(m^2). Physical Exam Constitutional: Appearance: Normal appearance. She is normal weight. HENT: Head: Normocephalic and atraumatic. Eyes: General: No scleral icterus. Extraocular Movements: Extraocular movements intact. Conjunctiva/sclera: Conjunctivae normal. Pupils: Pupils are equal, round, and reactive to light. Cardiovascular: Rate and Rhythm: Normal rate and regular rhythm. Pulses: Normal pulses. Heart sounds: Normal heart sounds. Pulmonary: Effort: Pulmonary effort is normal. Breath sounds: Normal breath sounds. Abdominal: General: Abdomen is flat. Bowel sounds are normal. Palpations: Abdomen is soft. Tenderness: There is abdominal tenderness (mild LLQ TTP). Musculoskeletal: General: Normal range of motion. Cervical back: Normal range of motion and neck supple. Skin: General: Skin is warm and dry. Coloration: Skin is not jaundiced. Neurological: General: No focal deficit present. Mental Status: She is alert and oriented to person, place, and time. Psychiatric: Mood and Affect: Mood normal. Behavior: Behavior normal. Thought Content: Thought content normal. Judgment: Judgment normal. Assessment/Plan (K90.0) Celiac disease (primary encounter diagnosis) (R10.32) LLQ pain (R19.7) Diarrhea, unspecified type 1. Celiac disease -- Patient with celiac disease diagnosed in 2019. Trying to be 100% gluten free -- Will check celiac panel, Vitamin B12, Vitamin D -- Having LLQ pain and diarrhea. Will check pancreatic elastase, fecal calprotectin - CELIAC SCREEN WITH REFLEX; Future - VITAMIN B12 BLOOD; Future - VITAMIN D 25 HYDROXY; Future - CALPROTECTIN,FECAL 2. LLQ pain -- Patient with chronic LLQ pain and diarrhea. Pain is worse with eating. -- Will check calprotectin, pancreatic elastase -- Will check celiac panel, Vitamin B12, Vitamin D -- Colonoscopy for further evaluation - CELIAC SCREEN WITH REFLEX; Future - VITAMIN B12 BLOOD; Future - VITAMIN D 25 HYDROXY; Future - CALPROTECTIN,FECAL - COLONOSCOPY DIAGNOSTIC; Future 3. Diarrhea, unspecified type -- Patient with chronic LLQ pain and diarrhea. Pain is worse with eating. -- Will check calprotectin, pancreatic elastase -- Will check celiac panel, Vitamin B12, Vitamin D -- Colonoscopy for further evaluation - CELIAC SCREEN WITH REFLEX; Future - VITAMIN B12 BLOOD; Future - VITAMIN D 25 HYDROXY; Future - CALPROTECTIN,FECAL - COLONOSCOPY DIAGNOSTIC; Future Follow up in office PRN. Recommended to please call office/go to ER if fever, chills, chest pain, SOB, diarrhea, nausea, emesis, worsening abdominal pain, dehydration occurs I spent a total of 20 minutes on the date of the service which included preparing to see the patient, [id number] patient care, completing clinical documentation, obtaining and/or reviewing separately obtained history, performing a medically appropriate examination, counseling and educating the patient/family/caregiver, and ordering medications, tests, or procedures. Elise Haas PA-C December 20, 2022 9:04 AM documented in this encounter [facility] 08-30-2021 Hospital Discharge instructions Patient Education 08/30/2021 18:34:42 Diarrhea, Unknown Cause Diarrhea with Uncertain Cause (Adult) Diarrhea is when stools are loose and watery. This can be caused by: Viral infections Bacterial infections Food poisoning Parasites Irritable bowel syndrome (IBS) Inflammatory bowel diseases such as ulcerative colitis, Crohn's disease, and celiac disease Food intolerance, such as to lactose, the sugar found in milk and milk products Reaction to medicines like antibiotics, laxatives, cancer drugs, and antacids Along with diarrhea, you may also have: Abdominal pain and cramping Nausea and vomiting Loss of bowel control Fever and chills Bloody stools In some cases, antibiotics may help to treat diarrhea. You may have a stool sample test. This is done to see what is causing your diarrhea, and if antibiotics will help treat it. The results of a stool sample test may take up to 2 days. The healthcare provider may not give you antibiotics until he or she has the stool test results. Diarrhea can cause dehydration. This is the loss of too much water and other fluids from the body. When this occurs, body fluid must be replaced. This can be done with oral rehydration solutions. Oral rehydration solutions are available at drugstores and grocery stores without a prescription. Sports drinks are not the best choice if you are very dehydrated. They have too much sugar and not enough electrolytes. Home care Follow all instructions given by your healthcare provider. Rest at home for the next 24 hours, or until you feel better. Avoid caffeine, tobacco, and alcohol. These can make diarrhea, cramping, and pain worse. If taking medicines: [id number] nausea and diarrhea medicines are generally OK unless you experience fever or blood stool. Check with your doctor first in those circumstances. You may use acetaminophen or NSAID medicines like ibuprofen or naproxen to reduce pain and fever. Don t use these if you have chronic liver or kidney disease, or ever had a stomach ulcer or gastrointestinal bleeding. Don't use NSAID medicines if you are already taking one for another condition (like arthritis) or are on daily aspirin therapy (such as for heart disease or after a stroke). Talk with your healthcare provider first. If antibiotics were prescribed, be sure you take them until they are finished. Don t stop taking them even when you feel better. Antibiotics must be taken as a full course. To prevent the spread of illness: Remember that washing with soap and water and using alcohol-based therapeutic case manager is the best way to prevent the spread of infection. Dry your hands with a single use towel (like a paper towel). Clean the toilet after each use. Wash your hands before eating. Wash your hands before and after preparing food. Keep in mind that people with diarrhea or vomiting should not prepare food for others. Wash your hands after using cutting boards, countertops, and knives that have been in contact with raw foods. Wash and then peel fruits and vegetables. Keep uncooked meats away from cooked and agewk-kh-mst foods. Use a food thermometer when cooking. Cook poultry to at least 165 F (74 C). Cook ground meat (beef, veal, pork, mcfarlane) to at least 160 F (71 C). Cook fresh beef, veal, mcfarlane, and pork to at least 145 F (63 C). Don t eat raw or undercooked eggs (poached or rory side up), poultry, meat, or unpasteurized milk and juices. Food and drinks The main goal while treating vomiting or diarrhea is to prevent dehydration. This is done by taking small amounts of liquids often. Keep in mind that liquids are more important than food right now. Drink only small amounts of liquids at a time. Don t force yourself to eat, especially if you are having cramping, vomiting, or diarrhea. Don t eat large amounts at a time, even if you are hungry. If you eat, avoid fatty, greasy, spicy, or fried foods. Don t eat dairy foods or drink milk if you have diarrhea. These can make diarrhea worse. During the first 24 hours you can try: Oral rehydration solutions. Sports drinks may be used if you are not too dehydrated and are otherwise healthy. Soft drinks without caffeine Yumiko lori Water (plain or flavored) Decaf tea or coffee Clear broth, consomm , or bouillon Gelatin, popsicles, or frozen fruit juice bars The second 24 hours, if you are feeling better, you can add: Hot cereal, plain toast, bread, rolls, or crackers Plain noodles, rice, mashed potatoes, chicken noodle soup, or rice soup Unsweetened canned fruit (no pineapple) Bananas As you recover: Limit fat intake to less than 15 grams per day. Don t eat margarine, butter, oils, mayonnaise, sauces, gravies, fried foods, peanut butter, meat, poultry, or fish. Limit fiber. Don t eat raw or cooked vegetables, fresh fruits except bananas, or bran cereals. Limit caffeine and chocolate. Limit dairy. Don t use spices or seasonings except salt. Go back to your normal diet over time, as you feel better and your symptoms improve. If the symptoms come back, go back to a simple diet or clear liquids. Follow-up care Follow up with your healthcare provider, or as advised. If a stool sample was taken or cultures were done, call the healthcare provider for the results as instructed. Call 911 Call 911 if you have any of these symptoms: Trouble breathing Confusion Extreme drowsiness or trouble walking Loss of consciousness Rapid heart rate Chest pain Stiff neck Seizure When to seek medical advice Call your healthcare provider right away if any of these occur: Abdominal pain that gets worse Constant lower right abdominal pain Continued vomiting and inability to keep liquids down Diarrhea more than 5 times a day Blood in vomit or stool Dark urine or no urine for 8 hours, dry mouth and tongue, tiredness, weakness, or dizziness Drowsiness New rash You don t get better in 2 to 3 days Fever of 100.4 F (38 C) or higher, or as directed by your healthcare provider [id number] [employer]. [address] [place] [address], [place] [address]. All rights reserved. This information is not intended as a substitute for professional medical care. Always follow your healthcare professional's instructions. 08/30/2021 18:34:42 Vomiting (Adult) Vomiting (Adult) Vomiting is a common symptom that may be due to different causes. These include gastroenteritis ( stomach flu ), food poisoning and gastritis. There are other more serious causes of vomiting which may be hard to diagnose early in the illness. Therefore, it is important to watch for the warning signs listed below. The main danger from repeated vomiting is dehydration. This is due to excess loss of water and minerals from the body. When this occurs, your body fluids must be replaced. Home care If symptoms are severe, rest at home for the next 24 hours. Because your symptoms may be from an infection, wash your hands often and well. If soap and water are not available, use alcohol-based therapeutic case manager to keep from spreading the infection to others. Wash your hands for at least 20 seconds. Humming the happy birthday song twice while you wash is an easy way to make sure you've washed for 20 seconds. Wash your hands after using the toilet, before and after preparing food, before eating food, after changing a diaper, cleaning a wound, caring for a sick person, and blowing your nose, coughing, or sneezing. You should also wash your hands after caring for someone who is sick, touching pet food, or treats, and touching an animal, or animal waste. You may use acetaminophen or NSAID medicines like ibuprofen or naproxen to control fever, unless another medicine was prescribed. If you have chronic liver or kidney disease or ever had a stomach ulcer or gastrointestinal bleeding, talk with your doctor before using these medicines. Aspirin should never be used in anyone under 18 years of age who is ill with a fever. It may cause severe liver damage. Don't use NSAID medicines if you are already taking one for another condition (like arthritis) or are on aspirin (such as for heart disease, or after a stroke) Don't use tobacco and or drink alcohol, which may worsen your symptoms. If medicines for vomiting were prescribed, take as directed. Once vomiting stops, then follow these guidelines: During the first 12 to 24 hours follow the diet below: Fruit juices. Apple, grape juice, clear fruit drinks, and electrolyte replacement drinks. Beverages. Soft drinks without caffeine; mineral water (plain or flavored), decaffeinated tea and coffee. Soups. Clear broth and bouillon Desserts. Plain gelatin, ice pops, and fruit juice bars. As you feel better, you may add 6 to 8 ounces of yogurt per day. During the next 24 hours you may add the following to the above: Hot cereal, plain toast, bread, rolls, crackers Plain noodles, rice, mashed potatoes, chicken noodle or rice soup Unsweetened canned fruit such as applesauce, bananas (avoid pineapple and citrus) Limit caffeine and chocolate. No spices or seasonings except salt. During the next 24 hours: Gradually resume a normal diet, as you feel better and your symptoms lessen. Follow-up care Follow up with your healthcare provider, or as advised. When to seek medical advice Call your healthcare provider right away if any of these occur: Constant right-sided lower belly pain or increasing general belly pain Continued vomiting (unable to keep liquids down) for 24 hours Vomiting blood or coffee grounds Swollen belly Frequent diarrhea (more than 5 times a day); blood (red or black color) or mucus in diarrhea Reduced urine output or extreme thirst Weakness, dizziness or fainting Unusually drowsy or confused Fever of 100.4 F (38 C) oral or higher, or as directed Yellow color of the eyes or skin [id number] [employer]. [address] [place] [id number]. All rights reserved. This information is not intended as a substitute for professional medical care. Always follow your healthcare professional's instructions. 08/30/2021 18:34:42 Dehydration (Adult) Dehydration (Adult) Dehydration occurs when your body loses too much fluid. This may be the result of prolonged vomiting or diarrhea, excessive sweating, or a high fever. It may also happen if you don t drink enough fluid when you re sick or out in the heat. Misuse of diuretics (water pills) can also be a cause. Symptoms include thirst and decreased urine output. You may also feel dizzy, weak, fatigued, or very drowsy. The diet described below is usually enough to treat dehydration. In some cases, you may need medicine. Home care Drink at least 12 8-ounce glasses of fluid every day to resolve the dehydration. Fluid may include water; orange juice; lemonade; apple, grape, or cranberry juice; clear fruit drinks; electrolyte replacement and sports drinks; and teas and coffee without caffeine. Don't drink alcohol. If you have been diagnosed with a kidney disease, ask your doctor how much and what types of fluids you should drink to prevent dehydration. If you have kidney disease, fluid can build up in the body. This can be dangerous to your health. If you have a fever, muscle aches, or a headache as a result of a cold or flu, you may take acetaminophen or ibuprofen, unless another medicine was prescribed. If you have chronic liver or kidney disease, or have ever had a stomach ulcer or gastrointestinal bleeding, talk with your healthcare provider before using these medicines. Don't take aspirin if you are younger than 18 and have a fever. Aspirin raises the chance for severe liver injury. Follow-up care Follow up with your healthcare provider, or as advised. When to seek medical advice Call your healthcare provider right away if any of these occur: Continued vomiting Frequent diarrhea (more than 5 times a day); blood (red or black color) or mucus in diarrhea Blood in vomit or stool Swollen abdomen or increasing abdominal pain Weakness, dizziness, or fainting Unusual drowsiness or confusion Reduced urine output or extreme thirst Fever of 100.4 F (38 C) or higher [id number] [employer]. [address] [place] [address]. All rights reserved. This information is not intended as a substitute for professional medical care. Always follow your healthcare professional's instructions. Follow Up Care 08/30/2021 18:06:22 With:LUIS CARLTON Address: [address] [place] [address] [place] [phone] Business (1) When:2-4 days [facility] documented as of this encounter (statuses as of 12/20/2022) [facility]09-17-2018 History of Past illness Narrative* Problem Noted Date Resolved Date Normal labor 06/29/2018 06/29/2018 Premature rupture of membranes 06/29/2018 0 07/01/2018 Low weight gain in , third trimester 07/01/2018 cardiac echogenic focus 02/24/2018 Subchorionic hemorrhage in first trimester 12/0907/01/2018 Overview: Noted on viability US at 9 wks: There is a 0.4 x 1.9 x 0.7cm sonolucent area adjacent to the gestational sac, most likely a sub-chorionic hemorrhage. Bleeding precautions r/w pt. documented as of this encounter (statuses as of 02/10/2023) [facility] No data available for this section [facility] Evaluation note* Diagnosis Celiac disease- Primary LLQ pain Abdominal pain, left lower quadrant Diarrhea, unspecified type [facility] in this encounter [facility] Diagnosis Lymphocytic colitis Other and unspecified noninfectious gastroenteritis and colitis [facility] No data available for this section [facility] Progress note No data available for this section [facility] Reason for referral (narrative)* Outpatient Procedure (Routine) - Pending Review Specialty Diagnoses / Procedures Referred By Nelli t Referred To Contact [facility] Diagnoses LLQ pain Diarrhea, unspecified type Procedures COLONOSCOPY DIAGNOSTIC COLONOSCOPY FLX DX W/COLLJ SPEC WHEN PFRMD Elise Haas PA-C [address] [place] [address] [facility] [address] [place] [address] Referral ID Status Reason Start Date Expiration Date Visits Requested Visits Authorized [id number] Pending Review Auto-Generat ed Referral 12/20/2022 12/21/2023 1 1 [facility] Summary Purpose Family History No Family History Records FoundNo Family History Records Found No data available for this section No Family History Records FoundNo Family History Records Found Advance Directives No Advanced Directives Records FoundNo Advanced Directives Records FoundNo Advanced Directives Records FoundNo Advanced Directives Records Found Hospital Course Note HNO ID: [id number]: Samira Cuellar (Ut) Del CiappoService: ObstetricsAuthor Type: MidwifeType: Discharge SummariesFiled: 07/01/2018 8:35 AMNote Text: DISCHARGE SUMMARYOBSTETRICSPATIENT NAME: Sumeet Brambila ADMISSION DATE: 06/28/2018MRN: [id number] DISCHARGE DATE: 07/01/2018Attending Physician: Doris Duke Code Status: Not on fileReason for Hospitalization: Intrauterine .Principal Problem (Resolved): Premature rupture of membranesActive Problems: * No active hospital problems. *Resolved Problems: Normal laborCOMPLICATIONS: SROMPROCEDURES/SURGERY DURING HOSPITALIZATION: Vaginal DeliverySuvetha (Res) Iam Resident Attested Obstetrics LANDD Delivery NoteDate of Service: 06/29/2018 10:31 AMAttestation signed by Doris Duke at 06/29/2018 12:59 PMAttending NoteI evaluated the patient and personally participated in the paredes components. I agree with the resident's findings and plan as documented and havediscussed the case and management of the patient's care with the (more content not included)... Additional Source Comments INFORMATION SOURCE (unrecogn ized section and content) DATE CREATED AUTHOR AUTHOR'S ORGANIZ ATION 09/21/2018 [facility] DATE CREATED AUTHOR AUTHOR'S ORGANIZ ATION 07/18/2023 [facility] ([place]) DATE CREATED AUTHOR AUTHOR'S ORGANIZ ATION 10/04/2023 [facility] Care Team (unrecognized sect ion and content) Insurance Legal Assistant Relationship Specialty Start Date End Date Luis Carlton [facility] [place] [id number] PCP - General Family Medicine 12/20/22 Source Comments (unrecognize d section and content) In the event this informatio n is protected by the Federal Confidentiality of Alcohol and Drug Abuse Patient Records regulations: The Federal rules restrict any use of the information to criminally investigate or prosecute any alcohol or drug abuse patient.[facility] the event this information is protected by the Federal Confidentiality of Alcohol and Drug Abuse Patient Records regulations: The Federal rules restrict any use of the information to criminally investigate or prosecute any alcohol or drug abuse patient.[facility] Reason for Visit (unrecogniz ed section and content) Reason Comments Refill Request FOR RECORDS PERTAINING TO PATIENTS WHO ARE OR HAVE BEEN ENROLLED IN A CHEMICAL DEPENDENCY/SUBSTANCEABUSE PROGRAM, SOME INFORMATION MAY BE OMITTED. This clinical summary was aggregated from multiple sources. Caution should be exercised in using it in the provision of clinical care. This summary normalizes information from multiple sources, and as a consequence, information in this document may materially change the coding, format and clinical context of patient data. In addition, data may be omitted in some cases. CLINICAL DECISIONS SHOULD BE BASED ON THE PRIMARY CLINICAL RECORDS. [facility]. provides no warranty or guarantee of the accuracy or completeness of information in this document.
[2023-10-24 11:15] LABS: HIV - WCH Non-Reactive (Nonreactive); Hepatitis B Surface Antigen Non-Reactive (Nonreactive); Hepatitis C Antibody Non-Reactive (Nonreactive); Iron 115 ug/dL (50-170); Iron Binding Capacity,Total 312 ug/dL (250-450); PERCENT IRON SATURATION 36.9 % (15.0-55.0); Rubella IgG Reactive (Nonreactive); Syphilis Antibodies Non-reactive
== END | disposition home or self-care (01) ==
LOC: PAVLAB 09:41
PROVIDERS: PCP Nurse Practitioner Primary Care; Referring Provider Registered Nurse; Visit Provider Registered Nurse
DX: Z34.90 Encounter for supervision of normal pregnancy, unspecified, unspecified trimester (principal); K90.0 Celiac disease; K52.832 Lymphocytic colitis
CPT/HCPCS: 36415; 82746; 83540; 83550; 85025; 86703; 86762; 86780; 86803; 86850; 86900; 86901; 87340

== ENCOUNTER → 2023-10-24 | Outpatient (CLI) | payer OTHER, SELFPAY ==
[2023-10-27 20:08] LABS: Chlamydia By Nucleic Acid AMP Negative (Negative); Gonococcus By Nucleic Acid AMP Negative (Negative)
[2023-10-29 20:01] LABS: HPV Reflexed? NOT INDICATED
== END | disposition home or self-care (01) ==
LOC: LABSPEC 14:02
PROVIDERS: PCP Nurse Practitioner Primary Care; Referring Provider Registered Nurse; Visit Provider Registered Nurse
DX: Z34.90 Encounter for supervision of normal pregnancy, unspecified, unspecified trimester (principal)
CPT/HCPCS: 87077; 87086; 87088; 87186; 87491; 87591; 88175; G0145

== ENCOUNTER → 2023-12-16 | Outpatient (CLI) | payer OTHER, SELFPAY | END | disposition home or self-care (01) | LOC: LABSPEC 11:06 | PROVIDERS: PCP Nurse Practitioner Primary Care; Referring Provider Nurse Practitioner Women's Health; Visit Provider Nurse Practitioner Women's Health | DX: O23.40 Unspecified infection of urinary tract in pregnancy, unspecified trimester (principal); B95.1 Streptococcus, group B, as the cause of diseases classified elsewhere; Z3A.00 Weeks of gestation of pregnancy not specified | CPT/HCPCS: 87077; 87086; 87088; 87186 ==

== ENCOUNTER → 2024-03-09 | Outpatient (CLI) | payer OTHER, SELFPAY ==
--- NOTE | 2024-03-09 12:48 | US_ITS ---
HISTORY: follow up pyelectasis. LMP 08/23/2023. TECHNIQUE: Transabdominal pelvic ultrasound was performed. 71 images. COMPARISON: None. FINDINGS: INTRAUTERINE GESTATION(s): Single. PRESENTATION: Cephalic. HEART MOTION: 153 bpm. PLACENTA: Fundal and right lateral, grade 0. No placenta previa. CERVIX: Not well visualized. AMNIOTIC FLUID INDEX (LINDA): 12.1 cm. Largest fluid pocket 4.3 cm. biometry- BIPARIETAL DIAMETER: 7.3 cm, corresponding to 30 weeks 5 days. HEAD CIRCUMFERENCE: 27.2 cm, corresponding to 29 weeks 5 days. ABDOMINAL CIRCUMFERENCE: 25.1 cm, corresponding to 29 weeks 2 days. FEMUR LENGTH: 5 cm, corresponding to 28 weeks 3 days. ESTIMATED GESTATIONAL AGE: 29 weeks 4 days. ESTIMATED DUE DATE (JUNIOR): 05/21/2024. ESTIMATED WEIGHT: 1376 g corresponding to 71st percentile. ANATOMY: 8 mm right renal pelvis and 8 mm left renal pelvis on limited survey. US/OB Limited With Biometrics IMPRESSION: Single living intrauterine with an estimated gestational age of 29 weeks 4 days. Bilateral hydronephrosis; recommend follow-up. Electronically Signed: Candida Cerda MD at 15:10 EDT ,
== END | disposition home or self-care (01) ==
PROVIDERS: PCP Nurse Practitioner Primary Care; Referring Provider Obstetrics & Gynecology; Visit Provider Obstetrics & Gynecology
DX: O35.EXX0 Maternal care for other (suspected) fetal abnormality and damage, fetal genitourinary anomalies, not applicable or unspecified (principal); Z3A.00 Weeks of gestation of pregnancy not specified
CPT/HCPCS: 76816

== ENCOUNTER → 2024-03-11 | Outpatient (CLI) | payer OTHER, SELFPAY ==
[2024-03-11 10:38] LABS: Absolute Lymphocyte Count 1.19 X10^3/uL (0.83-4.51); Absolute Neutrophil Count 4.7 X10^3/uL (2.0-7.7); Basophil# 0.02 X10^3/uL; Basophil% 0.3 % (0-1); Eosinophil# 0.03 X10^3/uL; Eosinophils% 0.5 % (0-5); Hematocrit 35.5 % (37-47); Hemoglobin 11.7 g/dL (12.0-15.0); Lymphocyte # 1.19 X10^3/ul (0.83-4.51); Lymphocyte % 18.5 % (19-41); Mean Corpuscular Volume 93.9 fL (81-99); Mean Platelet Vol. 10.8 fl (6.2-12.0); Monocyte# 0.43 X10^3/uL; Monocyte% 6.7 % (0-10); NRBC Flagged by Analyzer 0 % (0-5); Neutrophil # 4.72 X10^3/uL (2.7-7.7); Neutrophil % 73.5 % (47-70); Platelet Count 208 K/mm3 (150-450); RBC Distribution Width CV 13.2 % (11.6-14.6); RBC Distribution Width SD 45.1 fl (35.1-43.9); Red Blood Count 3.78 M/mm3 (4.2-5.4); White Blood Count 6.4 K/mm3 (4.4-11.0)
[2024-03-11 11:11] LABS: Glucose Challenge Gest 1H 50g 65 mg/dL (70-140)
[2024-03-11 11:46] LABS: HIV - WCH Non-Reactive (Nonreactive); Syphilis Antibodies Non-reactive
== END | disposition home or self-care (01) ==
LOC: LAB 10:08
PROVIDERS: PCP Nurse Practitioner Primary Care; Referring Provider Obstetrics & Gynecology; Visit Provider Obstetrics & Gynecology
DX: O09.92 Supervision of high risk pregnancy, unspecified, second trimester (principal); Z3A.00 Weeks of gestation of pregnancy not specified
CPT/HCPCS: 36415; 82950; 85025; 86703; 86780

== ENCOUNTER → 2024-04-09 | Outpatient (CLI) | payer OTHER, SELFPAY ==
--- NOTE | 2024-04-09 11:34 | US_ITS ---
HISTORY: pyelectasis. TECHNIQUE: Transabdominal pelvic ultrasound was performed. 51 images. COMPARISON: 03/09/2024. FINDINGS: INTRAUTERINE GESTATION(s): Single. PRESENTATION: Cephalic. HEART MOTION: 137 bpm. PLACENTA: Fundal right lateral, grade 0. No placenta previa. CERVIX: 3.3 cm long and closed. AMNIOTIC FLUID INDEX (LINDA): 12.7 cm. Largest fluid pocket 4.5 cm. biometry- BIPARIETAL DIAMETER: 8.8 cm, corresponding to 35 weeks 4 days. HEAD CIRCUMFERENCE: 31.8 cm, corresponding to 35 weeks 5 days. ABDOMINAL CIRCUMFERENCE: 30.7 cm, corresponding to 34 weeks 4 days. FEMUR LENGTH: 6.2 cm, corresponding to 32 weeks 0 days. ESTIMATED GESTATIONAL AGE: 34 weeks 5 days. ESTIMATED DUE DATE (JUNIOR): 05/16/2024. ESTIMATED WEIGHT: 2356 g corresponding to 78th percentile. ANATOMY: 8 mm bilateral renal pelves. US/OB Limited With Biometrics IMPRESSION: Single living intrauterine with an estimated gestational age of 34 weeks 5 days. No significant interval change in bilateral pyelectasis. Electronically Signed: Candida Cerda MD at 13:09 EDT ,
== END | disposition home or self-care (01) ==
LOC: US 11:33
PROVIDERS: PCP Nurse Practitioner Primary Care; Referring Provider Obstetrics & Gynecology; Visit Provider Obstetrics & Gynecology
DX: O99.891 Other specified diseases and conditions complicating pregnancy (principal); N13.30 Unspecified hydronephrosis; Z3A.28 28 weeks gestation of pregnancy
CPT/HCPCS: 76816

== ENCOUNTER 2024-06-02 04:02 | Inpatient (IN) | payer OTHER, SELFPAY ==
[2024-06-02] VITALS (31 sets, daily range): BP systolic 104–132; BP diastolic 57–82; PULSE 61–92; RESP 16–18; TEMP 36.3–37.1; O2SAT 97–100; BMI 22.0
[2024-06-02] MEDS: Lactated Ringers 1,000 ML 50 ML IV (04:15)
[2024-06-02] MEDS: Lactated Ringers 1,000 ML 999 ML IV (04:20)
[2024-06-02 04:30] LABS: Absolute Lymphocyte Count 1.25 X10^3/uL (0.83-4.51); Absolute Neutrophil Count 4.9 X10^3/uL (2.0-7.7); Basophil# 0.03 X10^3/uL; Basophil% 0.4 % (0-1); Eosinophil# 0.05 X10^3/uL; Eosinophils% 0.7 % (0-5); Hematocrit 34.4 % (37-47); Hemoglobin 11.1 g/dL (12.0-15.0); Lymphocyte # 1.25 X10^3/ul (0.83-4.51); Lymphocyte % 18.3 % (19-41); Mean Corp Hgb Conc 32.3 g/dL (32-36); Mean Corpuscular Hgb 27.1 pg (27.0-32.0); Mean Corpuscular Volume 84.1 fL (81-99); Mean Platelet Vol. 10.9 fl (6.2-12.0); Monocyte# 0.54 X10^3/uL; Monocyte% 7.9 % (0-10); NRBC Flagged by Analyzer 0 % (0-5); Neutrophil # 4.92 X10^3/uL (2.7-7.7); Neutrophil % 72.3 % (47-70); Platelet Count 197 K/mm3 (150-450); RBC Distribution Width CV 13.4 % (11.6-14.6); RBC Distribution Width SD 41.1 fl (35.1-43.9); Red Blood Count 4.09 M/mm3 (4.2-5.4); White Blood Count 6.8 K/mm3 (4.4-11.0)
[2024-06-02] MEDS: Penicillin G Pot 5,000,000 UNITS in 0.9% Normal Saline (100mL MB+) 100 ML 150 UNITS IV (04:30)
[2024-06-02 05:04] LABS: Syphilis Antibodies Non-reactive
--- NOTE | 2024-06-02 05:13 | HP.PCM.OB_ITS ---
HPI - General General Date of Admission: 06/02/24 Date of Service: 06/02/24 HPI Narrative SUMEET MOONEY, is a 29 F 40.4 weeks who presents to unit in labor. GBS positive. Maternal Data Information JUNIOR Calculator Estimated Delivery Date Method Current WG Current Estimate 05/29/24 LMP (Certain) 40w 4d Final JUNIOR: 05/29/24 Final JUNIOR Source: US >20 weeks Gestational age: 40.4 PFSH PFSH Medical History (spontaneous vaginal delivery) Home Medications ?Medication ?Instructions ?Recorded ?Last Taken ?Type multivitamin no.47-iron fum 27 1 cap PO DAILY supplement 10/17/23 06/01/24 08:00 History mg-folate no.1 1 mg-dha 300 mg capsule (PNV-DHA) Allergy/AdvReac Type Severity Reaction Status Date / Time No Known Allergies Allergy Verified 06/02/24 04:17 Family History Father Bipolar disorder with depression Mother Bipolar disorder Hypertension Thyroid disorder Brother Cancer, Onset Age: 27 Brain OCD (obsessive compulsive disorder) Surgical History History of endoscopy History of colonoscopy [place] teeth extracted Social History adopted: No household members: spouse and children number of children: 3 current occupational status: unemployed current occupation: [employer] current occupational exposures/hazards: No pets and animals: Yes pets and animals: fish history of recent travel: No sexually active: Yes Smoking Status: Never smoker alcohol intake: never substance use type: does not use diet: gluten free well-balanced diet: daily or most days caffeine: No eating out: 1-3 times/week during the past year weight has: remained stable what type of physical activity do you participate in: none candido/congregational: Cheondoism seatbelt use: always do you feel safe at home: Yes additional social history: - [employer]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 Date Name GA/Weeks Outcome Route Bth Weight Gen Labor Lgth Anesthesia Del Locatn Provider FOB 06/29/18 Edgar 38 live - full term 6#10oz Male epidural [facility] Shanika 07/13/19 Kojo 39 live - full term 6#14oz Male epid ural [facility] Srikanth Solorio 03/29/21 Trish 39 live - full term 7#4oz Female epidu ral [facility] Dr.Weeman Solorio Delivery Date: 06/29/18 Last Updated by: Lisbeth Villaseñor SROM Visit Details Expected Delivery Route/Plan Labor Preferences- CB/BF classes: [] labor support person: [] labor intervention preferences: [] pain management options preferred: [] cut cord/dad catch: [] : [] PP control planned: [] discussed possible routes of delivery and associated risks: [] special requests: [] Plans Covid status: [] Flu vaccine: declined Tdap vaccine: [] Rhogam: [] LARC form signed: [] Problem list reviewed and updated with the most current plan of care details and appropriate orders placed. Relevant counseling for the gestational age provided. Continue routine care and follow up unless otherwise noted in visit notes/problem list details OB Flowsheet Initial Weight: Not Recorded Date -?-?-?-?-?-?-?-?-?-?-?-?- EGA Weight BP Urine Prot -?-?-?-?-?-?-?-?-?-?-?-?- Glucose FHR FuHt Pres Dilation -?-?-?-?-?-?-?-?-?-?-?-?- Effaced St Visit Note 10/24/23 -?-?-?-?-?-?-?-?-?-?-?-?- 8w 6d 123 lb 3 oz 120/78 -?-?-?-?-?-?-?-?-?-?-?-?- 168 -?-?-?-?-?-?-?-?-?-?-?-?- LC- CRL con with LMP. declines nipt. 11/18/23 -?-?-?-?-?-?-?-?-?-?-?-?- 12w 3d 117 lb 8 oz 105/70 Nega tive -?-?-?-?-?-?-?-?-?-?-?-?- Negative 160 -?-?-?-?-?-?-?-?-?-?--?-?- JV- no cramping or bleeding. no complaints. wants allergy testing for gbs pos. 12/16/23 -?-?-?-?-?-?-?-?-?-?-?-?- 16w 3d 119 lb 6 oz 106/66 Nega tive -?-?-?-?-?-?-?-?-?-?-?-?- Negative 156 -?-?-?-?-?-?-?-?-?-?-?-?- MH-No VB. Feelin magy dickey. Denies concerns. Rpt urine culture today. Has not seen hospice team lead yet 01/13/24 -?-?-?-?-?-?-?-?-?-?-?-?- 20w 3d 128 lb 8 oz 120/78 Nega tive -?-?-?-?-?-?-?-?-?-?-?-?- Negative 145 20 -?-?-?-?-?-?-?-?-?--?-?-?- kw-no vb/crampin g. kw-no vb/cramping. some move ment noted. had anatomy Us. Will need more views in 2 weeks 02/12/24 -?-?-?-?-?-?-?-?-?-?-?-?- 24w 5d 130 lb 105/65 Negative -?-?-?-?-?-?-?-?-?-?-?-?- Negative 140 160 24 -?-?-?-?-?-?-?-?-?-?-?-?- SM- no vb lof go od fm no regular ctx 03/11/24 -?-?-?-?-?-?-?-?-?-?-?-?- 28w 5d 134 lb 2 oz 100/64 Nega tive -?-?-?-?-?-?-?-?-?-?-?-?- Negative 145 29 -?-?-?-?-?-?-?-?-?-?-?-?- KW- no vb lof ct x. good fm. Tdap declined. LARC today. KW- no vb lof ctx. good fm. Tdap declined. LARC today. glucose pending. 03/25/24 -?-?-?-?-?-?-?-?-?-?-?-?- 30w 5d 137 lb 99/67 -?-?-?-?-?-?-?-?-?-?-?-?- 140 30 [place] -?-?-?-?-?-?-?-?-?-?-?-?- SM- no vb lof go o dfm no regular ctx discussed some ithcing on an doff reviewd precauitons, check labs if persistent 04/06/24 -?-?-?-?-?-?-?-?-?-?-?-?- 32w 3d 139 lb 2 oz 106/67 Nega tive -?-?-?-?-?-?-?-?-?-?-?-?- Negative 145 32 Cephalic -?-?-?-?-?-?-?-?-?-?-?-?- JV- no lof, vagi nal bleeding, or dec fm. Ultrasound planned for friday. is vtx today. 04/19/24 -?-?-?-?-?-?-?-?-?-?-?-?- 34w 2d 140 lb 101/66 Trace -?-?-?-?-?-?-?-?-?-?-?-?- Negative 142 33.5 Cephalic 0 -?-?-?-?-?-?-?-?-?-?-?-?- JV- lots of pres sure, no lof, vaginal bleeding, or dec fm. pt reassured. 05/07/24 -?-?-?-?-?-?-?-?-?-?-?-?- 36w 6d 144 lb 6 oz 99/63 Nega tive -?-?-?-?-?-?-?-?-?-?-?-?- Negative 133 35 Cephalic -?-?-?-?-?-?-?-?-?-?-?-?- JV- consider LINDA check next visit. no lof, vaginal bleeding, or dec fm. 05/12/24 -?-?-?-?-?-?-?-?-?-?-?-?- 37w 4d 143 lb 6 oz 109/70 Nega tive -?-?-?-?-?-?-?-?-?-?-?-?- Negative 138 38 Cephalic 2 -?-?-?-?-?-?-?-?-?-?-?-?- 70 -1 JV- no lof , vaginal bleeding, or dec fm. no complaints. 05/19/24 -?-?-?-?-?-?-?-?-?-?-?-?- 38w 4d 145 lb 103/68 -?-?-?-?-?-?-?-?-?-?-?-?- 140 39 Cephalic -?-?-?-?-?-?-?-?-?-?--?-?- SM- no vb lof go od fm no regular ctx 05/26/24 -?-?-?-?-?-?-?-?-?-?-?-?- 39w 4d 146 lb 8 oz 113/70 Nega tive -?-?-?-?-?-?-?-?-?-?-?-?- Negative 160 38 Cephalic 4 -?-?-?-?-?-?-?-?-?-?-?-?- 80 -1 JV- no lof , vaginal bleeding, or dec fm. Pt is able to get pcn see attached notes. Labor precautions discussed. 05/31/24 -?-?-?-?-?-?-?-?-?-?-?-?- 40w 2d 146 lb 105/66 Negative -?-?-?-?-?-?-?-?-?-?-?-?- Negative 140 39 Cephalic 4 -?-?-?-?-?-?-?-?-?-?--?-?- 80 0 SM- no vb lof good fm no regular ctx SM- no vb lof good fm no reg ular ctx scheduled IOL for NST FHR Rate Baby A Baseline: 135 Variability:: Moderate Accelerations:: 15 x 15 Decelerations:: None NST Reactive:: Yes FHR Category:: Category I Uterine Activity:: irregular ROS Constitutional Constitutional: Denies change in weight, fatigue, fever(s), headache(s), poor appetite or weakness Eyes Eyes: Denies blurry vision, change in vision, floaters, seeing flashes or spots in vision ENT HEENT: Denies dizziness, headache(s), loss taste/smell or sore throat Cardiovascular Cardiovascular: Denies chest pain, dizziness, dyspnea, irregular heart rhythm, lightheadedness, palpitations or rapid heart rate Respiratory/Chest Respiratory/Chest: Denies change in mental status, chest tightness, cough, dyspnea or breast pain Gastrointestinal Gastrointestinal: Denies anorexia, chewing difficulty, constipation, diarrhea or weight changes Genitourinary Genitourinary: Denies difficulty urinating, dysuria, flank pain, genital pain, urinary frequency or urinary urgency Musculoskeletal Musculoskeletal: Denies back pain, difficulty walking, extremity pain, joint pain, muscle cramps or muscle weakness Integumentary Integumentary: Denies lesions or unusual bruising Neurologic Neurologic: Denies abnormal movements, abnormal speech, dizziness, numbness, seizure-like activity, syncope or weakness Psychiatric Psychiatric: Denies behavioral changes, change in appetite, confusion, depression, homicidal ideation, suicidal ideation or suicidal thoughts Endocrine Endocrinology: Denies excessive sweating, polydipsia or polyuria Hematologic/Lymphatic Hematologic/Lymphatic: Denies anemia Allergic/Immunologic Allergic/Immunologic: Denies itchy eyes, lip swelling, throat swelling, tongue swelling or wheezing Vital Signs Vital Signs Vital Signs: 06/02/24 04:04 06/02/24 04:04 06/02/24 04:04 Temperature Temperature Source Temporal Pulse Rate 88 Respiratory Rate Blood Pressure 122/73 H BP Systolic 122 BP Diastolic 73 Pulse Ox 06/02/24 04:04 06/02/24 04:04 06/02/24 04:04 Temperature 98.4 F Temperature Source Pulse Rate Respiratory Rate 16 Blood Pressure BP Systolic BP Diastolic Pulse Ox 99 Weight Weight: 145 lb 1.027 oz Body Mass Index (BMI) 22.0 Physical Exam Const alert, oriented x3 and no apparent distress General Appearance: cooperative Orientation / Consciousness: awake HEENT normocephalic Neck full ROM Lymph Lymphatic: no lymphadenopathy noted Chest inspection of chest normal Resp normal respiratory effort and normal air movement Effort and Inspection: able to speak in complete sentences and symmetric chest movement GI soft to palpation and non-tender Inspection: gravid Palpation: soft; Negative for tender external exam normal Manual OB Exam: dilated 5, effaced 80 and station 0 Back/Spine normal to inspection Extremity normal to inspection and full ROM Skin no rashes or lesions noted Psych mental status grossly normal Appearance: grossly normal Speech: normal speech Labs Labs Labs: Blood Type B POSITIVE Antibody Screen NEGATIVE Hct 34.4 % (37-47) L Hgb 11.1 g/dL (12.0-15.0) L Obstetrics Ultrasound Syphilis Total Ab Non-reactive VZV IgG Antibody 460 index (Immune >165) Rubella IgG Antibody Reactive (Nonreactive) Hep Bs Antigen Non-Reactive (Nonreactive) Hepatitis C Antibody Non-Reactive (Nonreactive) Hepatitis C Ab (EIA) <0.1 s/co ratio (0.0-0.9) Chlamydia DNA ([place]) Negative (Negative) N.gonorrhoeae DNA ([place]) Negative (Negative) HIV 1&2 Antibody Non-Reactive (Nonreactive) Glucose 1 Hr 50 gm 65 mg/dL (70-140) L Rhogam given: No Assessment & Plan (1) pyelectasis: COMMENT: bilateral, rpt US at 28 wk requests [facility] due to cost. remains stable (2) GBS (group B streptococcus) UTI complicating : QUALIFIERS: Trimester: second trimester Qualified Code(s): O23.42 - Unspecified infection of urinary tract in , second trimester; B95.1 - Streptococcus, group B, as the cause of diseases classified elsewhere COMMENT: 80,000 CFU- rpt december visit clean catch. if over 100,000, recommend treatment. Rpt 12/16/23:<10,000 GBS. Not treated treatment in labor- able to do pcn as she did go through allergy testing.-see attached. (3) Lymphocytic colitis: (4) Supervision of high-risk : QUALIFIERS: Trimester: second trimester Qualified Code(s): O09.92 - Supervision of high risk , unspecified, second trimester COMMENT: [id number], EDD8/, boy NETTA EdgarKojo bustamante, Trish Osmin (5) : QUALIFIERS: Weeks of gestation: 40 weeks Qualified Code(s): Z3A.40 - 40 weeks gestation of COMMENT: declined genetic & carrier testing/Declines & AFP. anatomy reviewed (6) Celiac disease: (7) Active labor: COMMENT: GBS pos-pcn PLAN: Patient presents IAL, plan expectant management for , pitocin/AROM PRN if needed. Pain management: plans epidural. GBS positive plan IV PCN. Management of any complications: none I have reviewed the [facility] and made any clinically relevant updates. Dr Flores aware of assessment and admission. Agrees with above plan Charges/Coding Multi Select Codes Urinary/Genital Urinary/Genital CPT Codes: No Charge
[2024-06-02] MEDS: fentaNYL-bupivacaine (epidural) 100 ML BAG EPIDURAL ×2 (06:09→10:18)
[2024-06-02] MEDS: Penicillin G 3,000,000 Units 50 ML 100 UNITS IV ×2 (08:47→13:12)
--- NOTE | 2024-06-02 09:52 | PN_ITS ---
Progress Note pt is laying comfortable with bed. she consents to AROM current tracing: FHT: Moderate variability reactive no decelerations category I tracing [place]: irregular Contractions cx: 5/80/-1. membranes ruptured and clear fluid returned. A/P: active labor - arom complete. anticipate contractions will fruit or nut picker soon. if not after 2-3 hours will start pitocin for augmentation.
[2024-06-02] MEDS: Lactated Ringers 1,000 ML 200 ML IV (11:05)
[2024-06-02] MEDS: Oxytocin 15 Units/NS 250ml 15 UNITS/250 ML IV.SOLN 334 UNITS IV (16:11)
--- NOTE | 2024-06-02 16:16 | OP.PCM_ITS ---
Assessment & Plan (1) Active labor: COMMENT: GBS pos-pcn (2) pyelectasis: COMMENT: bilateral, rpt US at 28 wk requests [facility] due to cost. remains stable (3) GBS (group B streptococcus) UTI complicating : QUALIFIERS: Trimester: second trimester Qualified Code(s): O23.42 - Unspecified infection of urinary tract in , second trimester; B95.1 - Streptococcus, group B, as the cause of diseases classified elsewhere COMMENT: 80,000 CFU- rpt december visit clean catch. if over 100,000, recommend treatment. Rpt 12/16/23:<10,000 GBS. Not treated treatment in labor- able to do pcn as she did go through allergy testing.-see attached. (4) Lymphocytic colitis: (5) Supervision of high-risk : QUALIFIERS: Trimester: second trimester Qualified Code(s): O09.92 - Supervision of high risk , unspecified, second trimester COMMENT: [id number], EDD05/29/24, boy Kojo Barahona Laura Osmin (6) : QUALIFIERS: Weeks of gestation: 40 weeks Qualified Code(s): Z3A.40 - 40 weeks gestation of COMMENT: declined genetic & carrier testing/Declines & AFP. anatomy reviewed (7) Celiac disease: Maternal Data Information JUNIOR Calculator Estimated Delivery Date Method Current WG Current Estimate 05/29/24 LMP (Certain) 40w 4d Final JUNIOR: 05/29/24 Final JUNIOR Source: LMP Vaginal Delivery Maternal Presentation Maternal Presentation: Active Labor Type of Induction: Amniotomy Operative Information Date of Procedure: 06/02/24 Pre-Operative Diagnosis: 29 y/o @ 4o weeks 5 days, active labor, gbs positive Post-Operative Diagnosis: 29 y/o @ 4o weeks 5 days, active labor, gbs positive Surgery / Procedure Performed: Spontaneous Vaginal Delivery Type of Anesthesia: Epidural Drain: Wade to straight drain Estimated Blood Loss: 50cc Time of Delivery: 16:07 Findings Description of Procedure: Patient began pushing and delivered the head in the DIOGO presentation. The head was delivered atraumatically. The anterior and posterior shoulders delivered without complication followed by the rest of the infant and the was placed on the maternal abdomen. Delayed cord clamping was employed for approximately 60 seconds. Cord was clamped and cut and gentle traction was applied to the cord and the placenta delivered spontaneously immediately following it was noted to be intact with three-vessel cord. The perineum and vagina were inspected and noted to be intact. EBL was 100 cc. Patient and tolerated delivery well. baby boy gallo Presentation: Vertex Amniotic Membrane Rupture Type: Spontaneous Amniotic Fluid Description: Clear Placental Delivery Description: Spontaneous Placenta Disposition: [facility] Cord Vessel Description: 3 Vessels Cord Entanglement: None A Gender: Male (1 minute): 8 (5 minute): 9 Delayed Cord Clamping: Yes Post Vaginal Delivery Medications Given After Delivery: IV Pitocin Episiotomy Description: None Laceration: None Complication Complications: None Multi Select Codes Urinary/Genital Urinary/Genital CPT Codes: 35693 Vaginal Delivery [facility]
--- NOTE | 2024-06-02 16:18 | PCM.DC ---
Discharge Instructions Diet Discharge Diet: No restrictions Activity Discharge Activity: Return to Normal Activity, May Not Drive (while taking narcotic pain medications.) and May Shower May resume sexual activity in: 4-6 weeks Dressing / Incision Call your doctor if your incision/area has: Continuous Slow Oozing, Sudden Increased Bleeding, Increased Pain/ Swelling, Increased Redness and Foul Smelling Discharge Follow Up Care Please Follow Up With: Crystal Magdaleno, DO When: Call [phone] to make an appointment with your doctor in 6 weeks. If you had elevated blood pressure or 4th degree laceration, you will need to be seen in 2 weeks. Test Results: Test results from this visit will be discussed in further detail at your follow-up appointment, if applicable. Discharge Plan Admission Admit Date/Time: 06/02/24 04:02 Attending Provider: Crystal Magdaleno Primary Care Provider: Kathy Lund NP Discharge Orders/Prescriptions Prescriptions: No Action PNV-DHA 27 mg iron-1 mg -300 mg capsule 1 cap PO DAILY Referrals / Follow Up: Kathy Lund NP, [employer] [Primary Care Provider] -
[2024-06-02] MEDS: Oxytocin 15 Units/NS 250ml 15 UNITS/250 ML IV.SOLN 83 UNITS IV (16:40)
[2024-06-02] MEDS: Ondansetron 4 MG/2 ML Vial IV (16:46)
[2024-06-02] MEDS: Acetaminophen 500 MG Tablet 1000 MG PO (17:56)
[2024-06-02] MEDS: 0.9% Saline Lock 10 ML Syringe IV (20:58)
[2024-06-02] MEDS: Naproxen 500 MG Tablet PO (22:51)
[2024-06-03 04:08] VITALS: BP 118/58; PULSE 77; RESP 16; TEMP 36.6
[2024-06-03 04:13] VITALS: BP 118/58; PULSE 77
[2024-06-03] MEDS: Acetaminophen 500 MG Tablet 1000 MG PO (04:14)
--- NOTE | 2024-06-03 07:29 | PCM.PN.OB ---
Subjective Subjective Patient doing well without complaints. Tolerating PO. Ambulating and voiding without difficulty. feeding well. Denies chest pain, shortness of breath, calf pain/swelling, fevers, chills, lightheadedness. Objective Data Objective Data Vital Signs: Vital Signs Temp Pulse Resp BP Pulse Ox O2 Del Method 97.9 F 77 16 118/58 L 98 Room Air 06/03/24 04:08 06/03/24 04:13 06/03/24 04:08 06/03/24 04:13 06/02/24 23:35 06/03/24 04:08 Oxygen Delivery Method Room Air Weight: 145 lb 1.027 oz Body Mass Index (BMI) 22.0 Intake & Output: Intake and Output for Last 24 Hours 06/01/24 06/02/24 06/03/24 23:59 23:59 23:59 Intake Total 4222.00 / 4222.00 Output Total 3250 / 3250 350 / 350 Balance 972.00 / 972.00 -350 / -350 Lab / Micro Data 06/02/24 04:15 ROS Constitutional Constitutional: Reports systems reviewed and no addt'l complaints, except as documented Cardiovascular Cardiovascular: Reports systems reviewed and no addt'l complaints, except as documented Respiratory/Chest Respiratory/Chest: Reports systems reviewed and no addt'l complaints, except as documented Gastrointestinal Gastrointestinal: Reports systems reviewed and no addt'l complaints, except as documented Physical Exam Const alert, oriented x3 and no apparent distress HEENT Head and Scalp: atraumatic Resp normal respiratory effort GI soft to palpation and non-tender Bimanual Exam - Vag & Uterus: uterus non-tender Uterus Palpation: uterus fundus firm (below Umbilicus) Assessment & Plan (1) Vaginal delivery: PLAN: Plan s/p PPD # 1 1. routine post delivery care 2. breast feeding- support given 3. rh positive 4. rubella immune
[2024-06-03 08:26] VITALS: BP 116/64; PULSE 75
[2024-06-03 08:27] VITALS: BP 116/64; PULSE 75; RESP 15; TEMP 36.5
[2024-06-03] MEDS: Naproxen 500 MG Tablet PO (11:16)
[2024-06-03 11:18] VITALS: BP 119/72; PULSE 78; RESP 16; TEMP 36.9
== END 2024-06-03 17:25 | disposition home or self-care (01) | DRG 807 ==
LOC: WPOUT 04:04 → WP 04:04
PROVIDERS: Admitting Provider Advanced Practice Midwife; PCP Nurse Practitioner Primary Care; Referring Provider Advanced Practice Midwife; Visit Provider Obstetrics & Gynecology
DX: O35.8XX0 Maternal care for other (suspected) fetal abnormality and damage, not applicable or unspecified (principal); Z37.0 Single live birth; O99.824 Streptococcus B carrier state complicating childbirth; Z3A.40 40 weeks gestation of pregnancy
CPT/HCPCS: 59025; 59050; 85025; 86780; 86850; 86900; 86901; 99221; J7120; A4216; G0378; J2405